=== PATIENT | female | born 1940 | race Caucasian/White ===

== ENCOUNTER → 2016-10-16 | Outpatient (CLI) | payer OTHER ==
[~2016-10-16] MED LIST: HYDR25TA5 PO; RANI75TA19 PO; TRAZ1TAB16 PO
[2016-10-16 17:53] LABS: BLOOD UREA NITROGEN 18 mg/dl (7-18); BUN/CREATININE RATIO 20.3 (10-20); CALCIUM 9.3 mg/dl (8.5-10.1); CARBON DIOXIDE 30 mmol/L (21-32); CHLORIDE 104 mmol/L (98-107); CREATININE 0.89 mg/dl (0.60-1.20); GLUCOSE 99 mg/dl (70-99); SODIUM 141 mmol/L (136-145)
== END | disposition home or self-care (01) ==
LOC: C.LABPVFM 11:49
PROVIDERS: ATTEND Nurse Practitioner
DX: R42 Dizziness and giddiness (principal)

== ENCOUNTER → 2017-01-30 | Outpatient (CLI) | payer OTHER ==
[~2017-01-30] MED LIST changes: +TRAZ-119 PO; -TRAZ1TAB16 PO
--- NOTE | 2017-01-30 11:06 | DIAGNOSTIC IMAGING REPORT ---
CHEST CT WITHOUT CONTRAST CT DOSE: 217.21 mGycm HISTORY: Pulmonary nodules R91.1 Solitary pulmonary [id number] TECHNIQUE: Multiaxial CT images of the chest were performed without contrast. COMPARISON: 07/18/2016 FINDINGS: No change in the 11 mm nodular density left lower lobe. An additional areas of micronodularity throughout both hemithoraces are stable. There are no new or interval findings. There is no significant hilar or mediastinal adenopathy within the limitations of an unenhanced scan. IMPRESSION: 1. Stable evaluation of the chest. 2. Unchanging nodularity left base and to lesser extent throughout the remaining lungs. 3. No evidence for new interval or progressive lesion Electronically signed by: Giacomo Murrell M.D. 01/30/2017 11:05 AM Dictated Date/Time: 01/30/2017 11:02 AM
== END | disposition home or self-care (01) ==
LOC: C.CTS 10:41
PROVIDERS: ATTEND Internal Medicine Pulmonary Disease
DX: R91.1 Solitary pulmonary nodule (principal)

== ENCOUNTER → 2017-03-09 | Outpatient (CLI) | payer OTHER ==
[2017-03-09 17:42] LABS: BASO % 0.7 %; BASO ABS # 0.04 K/uL (0-0.2); COMPLETE YES; EOS % 0.9 %; HEMATOCRIT 41.2 % (37-47); IG% 0.2 %; LYMPH % 21.4 %; LYMPH ABS # 1.26 K/uL (1.2-3.4); MEAN CORPUSCULAR HEMOGLOBIN 29.3 pg (25-34); MEAN CORPUSCULAR HGB CONC 32.5 g/dl (32-36); MEAN PLATELET VOLUME 10.6 fL (7.4-10.4); MONO % 3.7 %; NEUT % 73.1 %; PLATELET COUNT 264 K/uL (130-400); RED BLOOD COUNT 4.58 M/uL (4.2-5.4); WHITE BLOOD COUNT 5.88 K/uL (4.8-10.8)
[2017-03-09 17:52] LABS: ALT/SGPT 21 U/L (12-78); AST/SGOT 25 U/L (15-37); BLOOD UREA NITROGEN 15 mg/dl (7-18); BUN/CREATININE RATIO 16.3 (10-20); CALCIUM 9.5 mg/dl (8.5-10.1); CARBON DIOXIDE 29 mmol/L (21-32); CHLORIDE 103 mmol/L (98-107); CREATININE 0.93 mg/dl (0.60-1.20); GLUCOSE 121 mg/dl (70-99); POTASSIUM 3.1 mmol/L (3.5-5.1); SODIUM 141 mmol/L (136-145)
[2017-03-09 18:03] LABS: ALB/GLOB RATIO 1.1 (0.9-2); ALKALINE PHOSPHATASE 49 U/L (45-117)
[2017-03-09 20:04] LABS: LYME DISEASE AB IGM NEG (NEG)
[2017-03-09 20:05] LABS: LYME DISEASE AB IGG NEG (NEG)
--- NOTE | 2017-03-15 13:27 | CODING QUERY MEDICAL NECESSITY ---
SUPPORTING DIAGNOSIS NEEDED A supporting diagnosis is required for the test/procedure performed on this patient in order for us to be reimbursed by the patient's insurance. Please provide a supporting diagnosis for the following test/procedure listed below next to the test name along with your signature. *If there is no additional diagnosis for this patient that would support the following test/procedure please document that below next to the test/procedure. Test(s)/Procedure(s) that require a supporting diagnosis: * VITAMIN D, 25-HYDROXY DIAGNOSIS: Provider Signature: Date: Thank you Meredith Gamboa [employer] Information Management Once completed, please kindly fax back to [phone] For questions please call [phone]
== END | disposition home or self-care (01) ==
LOC: C.LABPVFM 11:12
PROVIDERS: ATTEND Nurse Practitioner
DX: I49.9 Cardiac arrhythmia, unspecified (principal); E55.9 Vitamin D deficiency, unspecified

== ENCOUNTER → 2017-04-02 | Outpatient (CLI) | payer OTHER ==
[~2017-04-02] MED LIST changes: -TRAZ-119 PO; +TRAZ1TAB16 PO
== END | disposition home or self-care (01) ==
LOC: C.LABPVFM 09:59
PROVIDERS: ATTEND Nurse Practitioner
DX: E87.6 Hypokalemia (principal)

== ENCOUNTER → 2017-04-23 | Outpatient (CLI) | payer OTHER ==
[2017-04-23 18:38] LABS: BLOOD UREA NITROGEN 21 mg/dl (7-18); BUN/CREATININE RATIO 23.4 (10-20); CALCIUM 9.5 mg/dl (8.5-10.1); CARBON DIOXIDE 34 mmol/L (21-32); CHLORIDE 102 mmol/L (98-107); CREATININE 0.91 mg/dl (0.60-1.20); GLUCOSE 119 mg/dl (70-99); POTASSIUM 3.4 mmol/L (3.5-5.1); SODIUM 140 mmol/L (136-145)
== END | disposition home or self-care (01) ==
LOC: C.LABPVFM 13:13
PROVIDERS: ATTEND Nurse Practitioner
DX: E87.6 Hypokalemia (principal)

== ENCOUNTER → 2017-04-27 | Outpatient (CLI) | payer OTHER ==
--- NOTE | 2017-04-27 15:34 | MAMMOGRAPHY REPORT ---
BILATERAL DIGITAL SCREENING MAMMOGRAM WITH CAD: 04/27/2017 CLINICAL HISTORY: Routine screening. Patient has no complaints. TECHNIQUE: Current study was also evaluated with a Computer Aided Detection (CAD) system. Bilateral CC and MLO views were obtained. COMPARISON: Comparison is made to exams dated: 04/14/2016 mammogram, 04/12/2015 mammogram, 01/31/2012 m ammogram, 01/26/2011 mammogram - [facility], 09/16/2008, and 09/20/2009 mammogram - [facility]. BREAST COMPOSITION: There are scattered areas of fibroglandular density in both breasts. FINDINGS: No suspicious masses, calcifications, or areas of architectural distortion are noted in ei ther breast. There has been no significant interval change compared to prior exams. Scattered bilater al benign-appearing calcifications are not significantly changed. Left superior breast asymmetries a re stable dating back to at least 2007 exam. IMPRESSION: ACR BI-RADS CATEGORY 2: BENIGN There is no mammographic evidence of malignancy. A 1 year screening mammogram is recommended. The pa tient will receive written notification of the results. Approximately 10% of breast cancers are not detected with mammography. A negative mammographic report should not delay biopsy if a clinically suggestive mass is present. Joanne Urena M.D. ah/:04/27/2017 14:54:04 Privacy Director: Zara JOSEPH(Kaleb)(M), [facility] letter sent: Normal 1/2 BI-RADS Code: ACR BI-RADS Category 2: Benign
== END | disposition home or self-care (01) ==
LOC: C.MAMM 13:49
PROVIDERS: ATTEND Nurse Practitioner
DX: Z12.31 Encounter for screening mammogram for malignant neoplasm of breast (principal)

== ENCOUNTER → 2017-10-01 | Day surgery (SDC) | payer OTHER ==
[2017-09-05 08:45] VITALS: BMI 23.0
[~2017-10-01] VITALS: Ht 167.6 cm; Wt 68.2 kg
[~2017-10-01] MED LIST changes: +ASPITAB71 PO; +LIDOCAINE HCL 2% 2 ML VIAL (20MG/ML) ONE; +POTASSIUM CHLORIDE PO; +PROPOFOL IV EMULSION 10 MG/ML 20 ML VIAL IV ONE; -RANI75TA19 PO; +SODIUM CHLORIDE 0.9% 500ML 500 ML IV ONE; +TRAZ-119 PO; -TRAZ1TAB16 PO
[2017-10-01 13:16] VITALS: Ht 167.6 cm; Wt 68.2 kg
--- NOTE | 2017-10-01 14:00 | Endo History and Physical ---
History & Physical Date of Service: Oct 01, 2017. Chief Complaint: hx adenoma polyp Referring Physician: Whitney ALVAREZ History of Present Illness 77 yo CF who presents for colonoscopy secondary to history of colon polyp. Past Medical History Arthritis, Gastrointestinal Disorder, Reflux Past Surgical History Hx Cardiac Surgery: No Hx Internal Defibrillator: No Hx Pacemaker: No Hx Abdominal Surgery: Yes (TUBAL) Hx of Implantable Prosthesis: No Hx Post-Op Nausea and Vomiting: No Hx Cancer Surgery: No Hx Thoracic Surgery: No Hx Orthopedic: No Hx Urinary Tract Surgery: No Family History IBD Social History Smoking Status: Never Smoker Hx Substance Use: No Hx Alcohol Use: Yes (WINE A YEAR ) Allergies Coded Allergies: No Known Allergies (Unverified , 10/01/17) Current Medications Reported Home Medications Medications Dose Route/Sig Max Daily Dose Days Date Category Dose Instructions Veronika-[place] (Aspirin Effervescent) 1 Tab Tab 1 Tab PO PRN 09/05/17 Reported [Potassium Chloride] 1 Tab PO QAM 09/05/17 Reported Desyrel (Trazodone Hcl) 50 Mg Tab 50 Mg PO HS 12/29/14 Reported Hydrochlorothiazide 25 Mg Tab 25 Mg PO Q2D 12/29/14 Reported AM Vital Signs Weight (Kilograms): 68.18 Height (Feet): 5 Height (Inches): 6 Date Time Temp Pulse Resp B/P (MAP) Pulse Ox O2 Delivery O2 Flow Rate FiO2 10/01/17 13:27 36.5 50 18 130/60 (83) 96 Room Air Physical Exam General Appearance: WD/WN, no apparent distress Respiratory/Chest: Auscultation: breath sounds normal Cardiovascular: Heart Auscultation: RRR Abdomen: Bowel Sounds: normal Inspection & Palpation: soft, non-distended, no tenderness, guarding & rebound Assessment and Plan Assessment: 77 yo CF who presents for colonoscopy secondary to history of colon polyp. Plan: Proceed with colonoscopy.
--- NOTE | 2017-10-01 14:50 | Anesthesiology Progress Note ---
Anesthesia Post Op Note Date & Time Oct 01, 2017 at 14:50 Vital Signs Pain Intensity: 0 Vital Signs Past 12 Hours Date Time Temp Pulse Resp B/P (MAP) Pulse Ox O2 Delivery O2 Flow Rate FiO2 10/01/17 14:37 53 12 105/48 (67) 99 Room Air 10/01/17 13:27 36.5 50 18 130/60 (83) 96 Room Air Notes Mental Status: alert / awake / arousable, participated in evaluation Pt Amnestic to Procedure: Yes Nausea / Vomiting: adequately controlled Pain: adequately controlled Airway Patency, RR, SpO2: stable & adequate BP & HR: stable & adequate Hydration State: stable & adequate Anesthetic Complications: no major complications apparent
--- NOTE | 2017-10-01 14:58 | Discharge Instructions ---
Endoscopy Patient Instructions Date / Procedure(s) Performed Oct 01, 2017. Colonoscopy Allergy Information Coded Allergies: No Known Allergies (Unverified , 10/01/17) Discharge Date / Findings Oct 01, 2017. Colon polyps Diverticulosis Internal hemorrhoids Medication Instructions OK to resume all medications today as prescribed Reported Home Medications Medications Dose Route/Sig Max Daily Dose Days Date Category Dose Instructions Veronika-[place] (Aspirin Effervescent) 1 Tab Tab 1 Tab PO PRN 09/05/17 Reported [Potassium Chloride] 1 Tab PO QAM 09/05/17 Reported Desyrel (Trazodone Hcl) 50 Mg Tab 50 Mg PO HS 12/29/14 Reported Hydrochlorothiazide 25 Mg Tab 25 Mg PO Q2D 12/29/14 Reported AM Provider Instructions Activity Restrictions - No exercising or heavy lifting for 24 hours. - Do not drink alcohol the day of the procedure. - Do not drive a car or operate machinery until the day after the procedure. - Do not make any important decisions or sign important papers in 24 hours after the procedure. Following Day: - Return to full activity which may include returning to work/school. Diet Start your diet with liquids and light foods (jello, soup, juice, toast). Then eat your usual diet if not nauseated. Treatment For Common After Affects For mild abdominal pain, bloating, or excessive gas: - Rest - Eat lightly - Lie on right side Follow-Up Information Follow-up with Whitney ALVAREZ as scheduled Anesthesia Information What You Should Know You have had a procedure that required some medicine to reduce anxiety and discomfort. This treatment is called moderate sedation. After receiving the treatment, you may be sleepy, but you will be able to breathe on your own. The effects of the treatment may last for several hours. Follow these instructions along with Activity/Diet recommendations noted above: * Do NOT do anything where dizziness or clumsiness would be dangerous. * Rest quietly at home today, then you can be up and about tomorrow. * Have a responsible person stay with you the rest of today. * You may have had an I.V. today. If so, you may take the dressing off later today. Recommendations Call your doctor if: * Trouble breathing * Continuous vomiting for more than 24 hours * Temperature above 101 degrees * Severe abdominal pain or bloating * Pain not relieved by pain medicine ordered * There is increased drainage or redness from any incision * A large amount of rectal bleeding greater than 2-3 tablespoons. (If you had a polyp/s removed or have hemorrhoids, a small amount of blood - from the rectum is to be expected.) * You have any unanswered questions or concerns. IN THE EVENT OF A SERIOUS EMERGENCY, GO TO THE NEAREST EMERGENCY ROOM Your discharge instructions were prepared by provider Mikal Cantu. Patient Instructions Signature Page Ely Muniz Patient (or Guardian) Signature/Date: I have read and understand the instructions given to me by my caregivers. Caregiver/RN/Doctor Signature/Date: The above-named patient and/or guardian has received patient instructions on this date. + Original Patient Signature Page (only) stays with chart. Please make copy for patient.
--- NOTE | 2017-10-01 15:05 | GI REPORT ---
Procedure Date: 10/01/2017 1:43 PM Procedure: Colonoscopy Indications: High risk colon cancer surveillance: Personal history of colonic polyps Medicines: Monitored Anesthesia Care Complications: No immediate complications. Estimated Blood Loss: Estimated blood loss: none. Procedure: Pre-Anesthesia Assessment: - Prior to the procedure, a History and Physical was performed, and patient medications and allergies were reviewed. The patient's tolerance of previous anesthesia was also reviewed. The risks and benefits of the procedure and the sedation options and risks were discussed with the patient. All questions were answered, and informed consent was obtained. Prior Anticoagulants: The patient has taken no previous anticoagulant or antiplatelet agents. ASA Grade Assessment: II - A patient with mild systemic disease. After reviewing the risks and benefits, the patient was deemed in satisfactory condition to undergo the procedure. After I obtained informed consent, the scope was passed under direct vision. Throughout the procedure, the patient's blood pressure, pulse, and oxygen saturations were monitored continuously. The scope was introduced through the anus and advanced to the terminal ileum. The colonoscopy was performed without difficulty. The patient tolerated the procedure well. The quality of the bowel preparation was good. The terminal ileum, ileocecal valve, appendiceal orifice, and rectum were photographed. Findings: Two sessile polyps were found in the ascending colon. The polyps were 3 to 5 mm in size. These polyps were removed with a cold snare. Resection and retrieval were complete. Two sessile polyps were found in the transverse colon and ascending colon. The polyps were 5 to 7 mm in size. These polyps were removed with a hot snare. Resection and retrieval were complete. Multiple small-mouthed diverticula were found in the sigmoid colon. Non-bleeding internal hemorrhoids were found during retroflexion. The hemorrhoids were small. Impression: - Two 3 to 5 mm polyps in the ascending colon, removed with a cold snare. Resected and retrieved. - Two 5 to 7 mm polyps in the transverse colon and in the ascending colon, removed with a hot snare. Resected and retrieved. - Diverticulosis in the sigmoid colon. - Non-bleeding internal hemorrhoids. Recommendation: - Resume previous diet. - Continue present medications. - Repeat colonoscopy for surveillance based on pathology results. - Return to primary care physician as previously scheduled. Mikal Cantu DO 10/01/2017 3:05:13 PM This report has been signed electronically. Note Initiated On: 10/01/2017 1:43 PM I attest to the content of the Intraoperative Record and orders documented therein, exceptions below
[2017-10-01 15:07] VITALS: BP 127/61; PULSE 51; O2SAT 99
== END | disposition home or self-care (01) ==
LOC: C.GI 12:57
PROVIDERS: ATTEND Internal Medicine
DX: Z12.11 Encounter for screening for malignant neoplasm of colon (principal); Z86.010 Personal history of colon polyps; D12.2 Benign neoplasm of ascending colon; D12.3 Benign neoplasm of transverse colon; K57.30 Diverticulosis of large intestine without perforation or abscess without bleeding; K64.8 Other hemorrhoids; Z83.79 Family history of other diseases of the digestive system; K21.9 Gastro-esophageal reflux disease without esophagitis; M19.90 Unspecified osteoarthritis, unspecified site; Z79.899 Other long term (current) drug therapy

== ENCOUNTER → 2018-02-05 | Outpatient (CLI) | payer OTHER ==
[~2018-02-05] MED LIST changes: -LIDOCAINE HCL 2% 2 ML VIAL (20MG/ML) ONE; -PROPOFOL IV EMULSION 10 MG/ML 20 ML VIAL IV ONE; -SODIUM CHLORIDE 0.9% 500ML 500 ML IV ONE
--- NOTE | 2018-02-05 11:31 | DIAGNOSTIC IMAGING REPORT ---
(CHEST) THORAX WITHOUT CT DOSE: 200.76 mGycm HISTORY: Pulmonary nodules. Follow-up. TECHNIQUE: Multiaxial CT images of the chest were performed without contrast. A dose lowering technique was utilized adhering to the principles of ALARA. COMPARISON: Chest CT 01/30/2017 and 12/21/2015. FINDINGS: The central airways are patent. No pleural effusions. No pneumothorax. The left lower lobe nodule is not significantly changed and size or appearance measuring 11 mm. Linear density at the base of the left lower lobe favor subsegmental atelectasis or scarring. This remains unchanged. Calcified mediastinal and left hilar lymph nodes with a punctate calcified granuloma within the left lower lobe. Stable 3 mm nodular density within the right lower lobe on image 190. And stable 4 mm nodule within the right lower lobe on image 164. No new pulmonary nodules identified. Punctate calcified granuloma within the right middle lobe. No suspicious lytic or blastic osseous lesions. No mediastinal or hilar lymphadenopathy. The heart is mildly enlarged. Trace pericardial effusion which has improved. Stable 1 cm hypodense lesion within the left hepatic lobe. This favors a cyst. Normal adrenal glands. Normal caliber thoracic aorta. IMPRESSION: 1. Stable pulmonary nodules with the largest in the left lower lobe measuring 11 mm. Again, a carcinoid tumor is the diagnosis of exclusion. 2. No new pulmonary nodules identified. 3. Trace pericardial effusion which has improved. 4. Stable mild cardiomegaly. Electronically signed by: Juan Hurtaod M.D. 02/05/2018 11:30 AM Dictated Date/Time: 02/05/2018 11:17 AM
== END | disposition home or self-care (01) ==
LOC: C.CTS 10:40
PROVIDERS: ATTEND Internal Medicine Pulmonary Disease
DX: R91.1 Solitary pulmonary nodule (principal)

== ENCOUNTER → 2018-04-18 | Outpatient (CLI) | payer OTHER ==
[~2018-04-18] MED LIST changes: -TRAZ-119 PO; +TRAZ1TAB96 PO
[2018-04-18 12:54] LABS: BLOOD UREA NITROGEN 16 mg/dl (7-18); CALCIUM 9.6 mg/dl (8.5-10.1); CARBON DIOXIDE 31 mmol/L (21-32); CREATININE 0.84 mg/dl (0.60-1.20); GLUCOSE 98 mg/dl (70-99); POTASSIUM 3.6 mmol/L (3.5-5.1); SODIUM 137 mmol/L (136-145)
== END | disposition home or self-care (01) ==
LOC: C.LABPVFM 11:17
PROVIDERS: ATTEND Nurse Practitioner
DX: R60.9 Edema, unspecified (principal); E87.6 Hypokalemia

== ENCOUNTER → 2018-05-03 | Outpatient (CLI) | payer OTHER ==
--- NOTE | 2018-05-03 15:42 | MAMMOGRAPHY REPORT ---
BILATERAL DIGITAL SCREENING MAMMOGRAM TOMOSYNTHESIS WITH CAD: 05/03/2018 CLINICAL HISTORY: Routine screening. Patient has no complaints. TECHNIQUE: The study was acquired using full field digital technology and interpreted from soft copy. Breast tomosynthesis in addition to standard 2D mammography was performed. Current study was also ev aluated with a Computer Aided Detection (CAD) system. Note that there is mild motion artifact in the left lateral breast on the cc 2D image, however, the corresponding tomosynthesis images have no milan on and are adequate for interpretation. COMPARISON: Comparison is made to exams dated: 04/27/2017 mammogram, 04/14/2016 mammogram, 04/12/2015 m ammogram, 08/13/2012 mammogram, 02/14/2012 mammogram, and 01/31/2012 mammogram - [facility]. BREAST COMPOSITION: There are scattered areas of fibroglandular density in both breasts. FINDINGS: No suspicious masses, calcifications, or areas of architectural distortion are noted in either breast . There has been no significant interval change compared to prior exams. Scattered bilateral benign-a ppearing calcifications are not significantly changed. IMPRESSION: ACR BI-RADS CATEGORY 2: BENIGN There is no mammographic evidence of malignancy. A 1 year screening mammogram is recommended.( 019) The patient will receive written notification of the results. Some breast cancers are not detected with mammography. A negative mammographic report should not jason y biopsy if a clinically suggestive mass is present. Joanne Urena M.D. /:05/03/2018 15:24:28 Architecture Consultant: Rosa Maria Sheppard RT(R)(M), [facility] letter sent: Normal 1/2 BI-RADS Code: ACR BI-RADS Category 2: Benign
== END | disposition home or self-care (01) ==
LOC: C.MAMM 14:48
PROVIDERS: ATTEND Nurse Practitioner
DX: Z12.31 Encounter for screening mammogram for malignant neoplasm of breast (principal)

== ENCOUNTER 2022-01-17 12:25 | Inpatient (IN) ==
[2022-01-17] MEDS ORDERED: ASPIRIN CHEW 324 MG PO STA (12:53)
--- NOTE | 2022-01-17 13:12 | XRay Report ---
XR chest 1V portable HISTORY: 81 years-old Female Chest Pain . Atypical chest pain with weakness COMPARISON: Chest radiographs 04/16/2019, chest CT 02/05/2018, 02/16/2015, PET CT 02/22/2015. TECHNIQUE: Portable AP view of the chest FINDINGS: The cardiac silhouette is mildly enlarged. Atherosclerosis of the thoracic aorta. No pneumothorax, pl eural effusion or overt pulmonary edema. No airspace consolidation typical for pneumonia. Unchanged 1 .2 cm circumscribed nodule of the left lower lobe. Degenerative changes of the shoulders and spine. IMPRESSION: 1. Cardiomegaly without acute process. 2. 1.2 cm left lower lobe nodule has only minimally increased in size from 2015. On prior imaging, th is was suggestive of a pulmonary hamartoma versus pulmonary carcinoid. ACT 112: Negative or not required by law. The above report was generated using voice recognition software. It may contain grammatical, syntax o r spelling errors. Electronically signed by: Sean Joaquin M.D. 01/17/2022 1:11 PM
[2022-01-17 13:15] LABS: Basophils # (auto) 0.04 K/uL (0-0.2); Basophils % (auto) 0.6 %; Eosinophils # (auto) 0.15 K/uL (0-0.5); Eosinophils % (auto) 2.1 %; Hematocrit (blood only) 43.9 % (37-47); Hemoglobin 14.6 g/dL (12.0-16.0); Immature Granulocytes # (auto) 0.01 K/uL (0.00-0.02); Immature Granulocytes % (auto) 0.1 %; Lymphocytes # (auto) 1.63 K/uL (1.2-3.4); Lymphocytes % (auto) 23.3 %; Mean Corpuscular Hemoglobin 30.4 pg (25-34); Mean Corpuscular Hgb Conc 33.3 g/dL (32-36); Mean Corpuscular Volume 91.3 fL (80-100); Mean Platelet Volume 10.1 fL (7.4-10.4); Monocytes # (auto) 0.38 K/uL (0.11-0.59); Monocytes % (auto) 5.4 %; Neutrophils # (auto) 4.78 K/uL (1.4-6.5); Neutrophils % (auto) 68.5 %; Platelet Count 285 K/uL (130-400); RDW Coefficient of Variation 13.4 % (11.5-14.5); Red Blood Count 4.81 M/uL (4.2-5.4); White Blood Count 6.99 K/uL (4.8-10.8)
--- NOTE | 2022-01-17 13:19 | Emergency Department Note ---
History of Present Illness General Chief complaint: Dizziness Time Seen by Provider: 01/17/22 12:46 History of Present Illness Provider complaint: Dizziness near syncope palpitations Onset (ago): hour(s) 2 Location: chest Radiation: non-radiation Severity: mild Pain Consistency: + now resolved Current Pain Intensity: 0 Relieved By: + none Exacerbated By: + none Associated symptoms: + chest pain and + shortness of breath; no cough, no fever/chills, no headaches or no nausea/vomiting 81-year-old female presents emergency department for dizziness near syncope and palpitations. Patient reports that this morning she was outside painting when she suddenly began to feel very dizzy, warm, folic she was in a pass out and like her heart was racing. She reported some difficulty breathing but no chest pain. She went to her PCP who referred her into the emergency department today. Home Medications Medication Instructions Recorded Confirmed Type ibuprofen-diphenhydramine citrate 1 cap PO HS 10/16/18 01/17/22 History 200 mg-38 mg tablet (Advil PM) potassium gluconate 595 mg (99 mg) 595 mg PO BID tab 08/27/20 01/17/22 History tablet hydrochlorothiazide 25 mg tablet See Rx Instructions .ROUTE 08/29/21 01/17/22 Rx .COMPLEX #30 tablet esomeprazole magnesium 40 mg 40 mg PO DAILY #30 cap 09/21/21 01/17/22 Rx capsule,delayed release valacyclovir 1 gram tablet 1,000 mg PO BID #14 tab 12/20/21 01/17/22 Rx (Valtrex) trazodone 50 mg tablet See Rx Instructions .ROUTE 01/12/22 01/17/22 Rx .COMPLEX #30 tablet Allergies Allergy/AdvReac Type Severity Reaction Status Date / Time No Known Allergies Allergy Verified 01/17/22 14:45 Past Med/Surg History Medical History Anemia Generalized edema GERD (gastroesophageal reflux disease) GERD (gastroesophageal reflux disease) Insomnia Peripheral edema Pulmonary nodule Situational anxiety Surgical History History of bilateral cataract extraction History of bilateral tubal ligation History of colonoscopy History of dilatation and curettage History of esophagogastroduodenoscopy (EGD) History of tooth extraction History of varicose vein ligation bilt legs Hx of left breast biopsy benign Family History Mother Diabetes Sister Breast cancer Other No family history of adverse response to anesthesia Denies family history of Ovarian cancer Prostate cancer Myocardial infarction Colorectal cancer Social History Smoking Status: Never smoker Second Hand Exposure: No; Hx Alcohol Use: Yes Alcohol type: wine Hx Substance Use: No Preferred Language: Zimbabwean Communication Ability: Effective Visual Impairment: No Limitations Hearing Ability: Normal Dental Director Required: No Beliefs That Will Affect Care: None marital status: Current Living Situation: Spouse current occupational status: retired Feels Safe at Home: Yes Dental Care, Regularly: Yes Seatbelt Use: always Sunscreen Use: Yes (Sometimes) Assistive Devices: Glasses Review of Systems A total of 10 systems reviewed and were otherwise negative Physical Exam Vital Signs Vital Signs - 24 hr 01/17/22 12:30 01/17/22 12:34 01/17/22 12:53 Temperature 36.7 C Temperature Source Oral Pulse Rate 189 H Pulse Rate [Left Finger] Pulse Rate from SpO2 Sensor Pulse Rhythm Regular Pulse Rhythm [Left Finger] Respiratory Rate 22 Respiratory Effort / Characteristics Non-Labored Spontaneous Respiratory Depth Normal Respiratory Pattern Regular Blood Pressure 107/79 Blood Pressure Mean 88 Blood Pressure Position Lying Pulse Oximetry 96 Oxygen Delivery Method Room Air Room Air Room Air Oxygen Flow Rate 98 Sepsis Recent Fever Within 48 Hours No Sepsis New/Unexplained Change in Mental Status N/A Sepsis Action Taken by Nursing No Action Required 01/17/22 13:01 01/17/22 13:10 01/17/22 13:20 Temperature Temperature Source Pulse Rate 64 67 85 Pulse Rate [Left Finger] Pulse Rate from SpO2 Sensor 66 67 Pulse Rhythm Pulse Rhythm [Left Finger] Respiratory Rate 12 20 Respiratory Effort / Characteristics Respiratory Depth Respiratory Pattern Blood Pressure 134/63 Blood Pressure Mean 86 Blood Pressure Position Pulse Oximetry 99 100 Oxygen Delivery Method Oxygen Flow Rate Sepsis Recent Fever Within 48 Hours Sepsis New/Unexplained Change in Mental Status Sepsis Action Taken by Nursing 01/17/22 13:30 01/17/22 13:37 01/17/22 13:40 Temperature Temperature Source Pulse Rate 62 62 Pulse Rate [Left Finger] 62 Pulse Rate from SpO2 Sensor 61 62 Pulse Rhythm Pulse Rhythm [Left Finger] Regular Respiratory Rate 15 20 14 Respiratory Effort / Characteristics Non-Labored Respiratory Depth Normal Respiratory Pattern Blood Pressure 131/76 Blood Pressure Mean 94 Blood Pressure Position Pulse Oximetry 98 98 99 Oxygen Delivery Method Room Air Oxygen Flow Rate Sepsis Recent Fever Within 48 Hours Sepsis New/Unexplained Change in Mental Status Sepsis Action Taken by Nursing 01/17/22 13:50 01/17/22 14:00 01/17/22 14:10 Temperature Temperature Source Pulse Rate 60 58 L 68 Pulse Rate [Left Finger] Pulse Rate from SpO2 Sensor 60 58 L 67 Pulse Rhythm Pulse Rhythm [Left Finger] Respiratory Rate 16 21 17 Respiratory Effort / Characteristics Respiratory Depth Respiratory Pattern Blood Pressure 139/56 L Blood Pressure Mean 83 Blood Pressure Position Pulse Oximetry 99 98 97 Oxygen Delivery Method Oxygen Flow Rate Sepsis Recent Fever Within 48 Hours Sepsis New/Unexplained Change in Mental Status Sepsis Action Taken by Nursing 01/17/22 14:55 01/17/22 15:00 01/17/22 15:10 Temperature Temperature Source Oral Pulse Rate 55 L Pulse Rate [Left Finger] Pulse Rate from SpO2 Sensor Pulse Rhythm Pulse Rhythm [Left Finger] Respiratory Rate 15 Respiratory Effort / Characteristics Non-Labored Respiratory Depth Normal Respiratory Pattern Blood Pressure 137/46 L Blood Pressure Mean 76 Blood Pressure Position Pulse Oximetry 100 96 100 Oxygen Delivery Method Oxygen Flow Rate Sepsis Recent Fever Within 48 Hours Sepsis New/Unexplained Change in Mental Status Sepsis Action Taken by Nursing 01/17/22 15:20 01/17/22 15:30 01/17/22 15:31 Temperature Temperature Source Pulse Rate 54 L 61 61 Pulse Rate [Left Finger] Pulse Rate from SpO2 Sensor 62 Pulse Rhythm Pulse Rhythm [Left Finger] Respiratory Rate 13 24 17 Respiratory Effort / Characteristics Respiratory Depth Respiratory Pattern Blood Pressure 149/54 H Blood Pressure Mean 85 Blood Pressure Position Pulse Oximetry 97 98 99 Oxygen Delivery Method Oxygen Flow Rate Sepsis Recent Fever Within 48 Hours Sepsis New/Unexplained Change in Mental Status Sepsis Action Taken by Nursing 01/17/22 15:40 01/17/22 15:50 01/17/22 16:00 Temperature Temperature Source Pulse Rate 63 55 L 59 L Pulse Rate [Left Finger] Pulse Rate from SpO2 Sensor 59 L 55 L Pulse Rhythm Pulse Rhythm [Left Finger] Respiratory Rate 14 11 L 18 Respiratory Effort / Characteristics Respiratory Depth Respiratory Pattern Blood Pressure Blood Pressure Mean Blood Pressure Position Pulse Oximetry 99 98 96 Oxygen Delivery Method Oxygen Flow Rate Sepsis Recent Fever Within 48 Hours Sepsis New/Unexplained Change in Mental Status Sepsis Action Taken by Nursing 01/17/22 16:01 01/17/22 16:20 01/17/22 16:30 Temperature Temperature Source Pulse Rate 57 L 60 56 L Pulse Rate [Left Finger] Pulse Rate from SpO2 Sensor Pulse Rhythm Pulse Rhythm [Left Finger] Respiratory Rate 14 17 17 Respiratory Effort / Characteristics Respiratory Depth Respiratory Pattern Blood Pressure 149/53 H Blood Pressure Mean 85 Blood Pressure Position Pulse Oximetry 98 Oxygen Delivery Method Oxygen Flow Rate Sepsis Recent Fever Within 48 Hours Sepsis New/Unexplained Change in Mental Status Sepsis Action Taken by Nursing 01/17/22 16:40 01/17/22 16:50 01/17/22 17:00 Temperature Temperature Source Oral Pulse Rate 56 L 69 Pulse Rate [Left Finger] Pulse Rate from SpO2 Sensor Pulse Rhythm Pulse Rhythm [Left Finger] Respiratory Rate 19 13 Respiratory Effort / Characteristics Non-Labored Respiratory Depth Normal Respiratory Pattern Blood Pressure Blood Pressure Mean Blood Pressure Position Pulse Oximetry Oxygen Delivery Method Oxygen Flow Rate Sepsis Recent Fever Within 48 Hours Sepsis New/Unexplained Change in Mental Status Sepsis Action Taken by Nursing Physical Exam GENERAL: She is oriented to person, place, and time. She appears well-developed and well-nourished. She does not appear distressed. HENT: Exam performed. -Head: Normocephalic and atraumatic. -Right Ear: External ear normal. No mastoid tenderness. -Left Ear: External ear normal. No mastoid tenderness. -Mouth/Throat: The oropharynx is clear and moist. No trismus in the jaw. No dental abscesses or uvula swelling. No oropharyngeal exudate or tonsillar abscesses. EYES: Conjunctivae and EOM are normal. Pupils are equal, round, and reactive to light. Right eye exhibits no discharge. Left eye exhibits no discharge. No scleral icterus. NECK: Normal range of motion. Neck supple. No JVD present. No spinous process tenderness present. No carotid bruit present. No rigidity. No tracheal deviation and normal range of motion present. No Brudzinski's sign and no Kernig's sign noted. CV: Normal rate, irregular rhythm, normal heart sounds and intact distal pulses. There is no peripheral edema. Palpable radial pulses bue. PULM/CHEST: Effort normal and breath sounds normal. No respiratory distress. No stridor. She has no wheezes. She has no rales. -Chest Wall: She exhibits no tenderness. ABD: The abdomen is soft. Bowel sounds are normal. She has no distension. No mass is present. There is no tenderness. There is no rebound, no guarding, no Schroeder's sign and no tenderness at McBurney's point. Rovsig negative MUSC/SKEL: Normal range of motion. There is no peripheral edema, tenderness or deformity. LYMPH: No cervical adenopathy. NEURO: She is alert and oriented to person, place, and time. She has normal strength. No cranial nerve deficit or sensory deficit. Coordination and gait normal. GCS eye subscore is 4. GCS verbal subscore is 5. GCS motor subscore is 6. Cerebellar tests wnl. SKIN: Skin is warm and dry. She is not diaphoretic. PSYCH: She has a normal mood and affect. Behavior is normal. Judgment and thought content normal. Course Course 1246: The patient was evaluated in room B10. A complete history and physical exam was performed Cardiac monitoring: An order was placed for continuous cardiac monitoring. The monitor shows a rate of 80 with atrial fibrilation rhythm Nursing staff reports that when the patient arrived her heart rate was in the 180s with an irregular rhythm and has since improved without intervention. EMR reviewed. Patient was seen in her PCPs office in the clinic today Dr. Estrella who referred her here to the emergency department because of an abnormal EKG most likely atrial fibrillation with a rapid ventricular rate in the 150s. 1300: Vital signs stable. Patient converted to sinus rhythm without pharma cological intervention. 1515: Vital signs stable. Labs within normal limits with exception of a low magnesium. Magnesium replacement started in the emergency department. Imaging shows no PE. [facility] given the new onset of paroxysmal atrial fibrillation. [place] Hospitalist Dr. Ruvalcaba notified. Administered Medications Discontinued Medications Aspirin (Aspirin Chew 324 Mg) 324 mg PO NOW STA Stop: 01/17/22 12:54 Last Admin: 01/17/22 13:41 Dose: Not Given Documented by: [id number] Magnesium Sulfate/Dextrose (Magnesium Sulfate / D5w) 1 gm in 100 mls @ 100 mls/hr IV Q1H [facility] Stop: 01/17/22 16:44 Last Admin: 01/17/22 16:15 Dose: 100 mls/hr Documented by: [id number] Infusion: 01/17/22 16:15 Dose: 100 mls/hr Documented by: [id number] Admin: 01/17/22 15:21 Dose: 100 mls/hr Documented by: [id number] Ioversol (Optiray 320 125ml) 120 ml IV ONCE ONE Stop: 01/17/22 14:56 Last Admin: 01/17/22 14:45 Dose: 120 ml Documented by: [id number] Medical Decision Making Laboratory Data Result diagrams: 01/17/22 12:46 01/17/22 12:46 Lab Results 01/17/22 01/17/22 01/17/22 Range/Units 12:46 12:46 12:46 WBC 6.99 (4.8-10.8) K/uL RBC 4.81 (4.2-5.4) M/uL Hgb 14.6 (12.0-16.0) g/dL Hct 43.9 (37-47) % MCV 91.3 (80-100) fL MCH 30.4 (25-34) pg MCHC 33.3 (32-36) g/dL RDW Std Deviation 45.0 (36.4-46.3) fL RDW Coeff of Iain 13.4 (11.5-14.5) % Plt Count 285 (130-400) K/uL MPV 10.1 (7.4-10.4) fL Immature Gran % (Auto) 0.1 % Neut % (Auto) 68.5 % Lymph % (Auto) 23.3 % Walton % (Auto) 5.4 % Eos % (Auto) 2.1 % Baso % (Auto) 0.6 % Neut # (Auto) 4.78 (1.4-6.5) K/uL Lymph # (Auto) 1.63 (1.2-3.4) K/uL Walton # (Auto) 0.38 (0.11-0.59) K/uL Eos # (Auto) 0.15 (0-0.5) K/uL Baso # (Auto) 0.04 (0-0.2) K/uL Immature Gran # (Auto) 0.01 (0.00-0.02) K/uL PT 11.1 (9.0-12.0) Seconds INR 1.0 (0.9-1.1) APTT 27.3 (21.0-31.0) Seconds PTT Ratio 1.0 VBG pH (7.36-7.41) VBG pCO2 (38-50) mmHg VBG pO2 mmHg VBG HCO3 mmol/L VBG O2 Saturation % VBG Base Excess mEq/L Barometric Pressure mm/Hg Sodium 139 (136-145) mmol/L Potassium 3.7 (3.5-5.1) mmol/L Chloride 104 (98-107) mmol/L Carbon Dioxide 24 (21-32) mmol/L Anion Gap 11 (3-11) BUN 20 (6-23) mg/dl Creatinine 0.80 (0.6-1.2) mg/dl Est Cr Clr Drug Dosing 57.9 ml/min Est GFR ( Amer) 80.7 ml/min Est GFR (Non-Af Amer) 69.6 ml/min BUN/Creatinine Ratio 25.0 H (10-20) Glucose 118 H (70-99(Fasting)) mg/dl Calcium 9.5 (8.5-10.1) mg/dl Magnesium 1.5 L (1.7-2.4) mg/dl Troponin I High Sens 8.7 (0-14) pg/ml Lipase 26 (11-82) U/L SARS-CoV-2, RNA, NAAT (NEGATIVE) 01/17/22 01/17/22 01/17/22 Range/Units 13:11 15:03 Unknown WBC (4.8-10.8) K/uL RBC (4.2-5.4) M/uL Hgb (12.0-16.0) g/dL Hct (37-47) % MCV (80-100) fL MCH (25-34) pg MCHC (32-36) g/dL RDW Std Deviation (36.4-46.3) fL RDW Coeff of Iain (11.5-14.5) % Plt Count (130-400) K/uL MPV (7.4-10.4) fL Immature Gran % (Auto) % Neut % (Auto) % Lymph % (Auto) % Walton % (Auto) % Eos % (Auto) % Baso % (Auto) % Neut # (Auto) (1.4-6.5) K/uL Lymph # (Auto) (1.2-3.4) K/uL Walton # (Auto) (0.11-0.59) K/uL Eos # (Auto) (0-0.5) K/uL Baso # (Auto) (0-0.2) K/uL Immature Gran # (Auto) (0.00-0.02) K/uL PT (9.0-12.0) Seconds INR (0.9-1.1) APTT (21.0-31.0) Seconds PTT Ratio VBG pH 7.50 H (7.36-7.41) VBG pCO2 32 L (38-50) mmHg VBG pO2 32 mmHg VBG HCO3 25 mmol/L VBG O2 Saturation 64.9 % VBG Base Excess 2.2 mEq/L Barometric Pressure 732.7 mm/Hg Sodium (136-145) mmol/L Potassium (3.5-5.1) mmol/L Chloride (98-107) mmol/L Carbon Dioxide (21-32) mmol/L Anion Gap (3-11) BUN (6-23) mg/dl Creatinine (0.6-1.2) mg/dl Est Cr Clr Drug Dosing ml/min Est GFR ( Amer) ml/min Est GFR (Non-Af Amer) ml/min BUN/Creatinine Ratio (10-20) Glucose (70-99(Fasting)) mg/dl Calcium (8.5-10.1) mg/dl Magnesium (1.7-2.4) mg/dl Troponin I High Sens 18.0 H D (0-14) pg/ml Lipase (11-82) U/L SARS-CoV-2, RNA, NAAT NEGATIVE (NEGATIVE) Imaging Data Radiologist's Impression: Chest X-Ray 01/17/22 12:53 XR chest 1V portable HISTORY: 81 years-old Female Chest Pain . Atypical chest pain with weakness COMPARISON: Chest radiographs 04/16/2019, chest CT 02/05/2018, 02/16/2015, PET CT 02/22/2015. TECHNIQUE: Portable AP view of the chest FINDINGS: The cardiac silhouette is mildly enlarged. Atherosclerosis of the thoracic aorta. No pneumothorax, pleural effusion or overt pulmonary edema. No airspace consolidation typical for pneumonia. Unchanged 1.2 cm circumscribed nodule of the left lower lobe. Degenerative changes of the shoulders and spine. IMPRESSION: 1. Cardiomegaly without acute process. 2. 1.2 cm left lower lobe nodule has only minimally increased in size from 2015. 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 ACT 112: Negative or not required by law. The above report was generated using voice recognition software. It may contain grammatical, syntax or spelling errors. Electronically signed by: Sean Joaquin M.D. 01/17/2022 1:11 PM Chest CTA 01/17/22 12:54 CHEST CTA for PULMONARY ARTERIES CT DOSE: 316.34 mGy.cm HISTORY: Atypical chest pain. Dizziness. Weakness. TECHNIQUE: Multiaxial CT images of the chest were performed following the intravenous administration of contrast to evaluate the pulmonary arteries. Maximal intensity projection images were also obtained. A dose lowering technique was utilized adhering to the principles of ALARA. COMPARISON STUDY: Chest CT 02/05/2018. FINDINGS: Limited views the upper abdomen demonstrate normal liver, spleen, and adrenal glands. Stable 1 cm right thyroid nodule. This does not meet CT criteria for follow-up. A few calcified mediastinal lymph nodes. No mediastinal or hilar lymphadenopathy. The heart remains mildly enlarged. Trace pericardial effusion, unchanged. No pleural effusions. Normal esophagus. No suspicious lytic or blastic osseous lesions. No acute fractures identified within the chest. Normal caliber thoracic aorta with no evidence for dissection. The main pulmonary artery is slightly distended measuring up to 3.1 cm in diameter. This suggests mild pulmonary arterial hypertension. This is also similar to the prior study. There are few calcified left hilar lymph nodes. No filling defects seen within the pulmonary arteries to suggest a pulmonary embolus. There are few scattered punctate calcified granulomas within the lungs. No pneumothorax. The central airways are patent. Left basilar linear densities consistent with subsegmental atelectasis or scarring. The 12 mm left lower lobe pulmonary nodule on image 113. This previously measured 11 mm. No new focal lung consolidations to suggest pneumonia. No evidence for pulmonary edema. IMPRESSION: 1. No evidence for pulmonary embolus. 2. Stable mild cardiomegaly and a trace pericardial effusion. 3. There is a 12 mm left lower lobe pulmonary nodule. This previously measured 11 mm. 4. No focal lung consolidations to suggest pneumonia. ACT 112: Negative or not required by law. Electronically signed by: Juan Hurtado M.D. 01/17/2022 3:10 PM ECG Data Additional Comments: EKG #1 at 1233: Atrial fibrillation with rate of 129. QRS [address] elevation or ST depression PVCs present. EKG #2 at 1255: Sinus rhythm with rate of 64. LA QRS and QT intervals within normal limits. No ST elevation or ST depression. [facility] Narrative 1246: The patient was evaluated in room B10. A complete history and physical exam was performed Cardiac monitoring: An order was placed for continuous cardiac monitoring. The monitor shows a rate of 80 with atrial fibrilation rhythm Nursing staff reports that when the patient arrived her heart rate was in the 180s with an irregular rhythm and has since improved without intervention. EMR reviewed. Patient was seen in her PCPs office in the clinic today Dr. Estrella who referred her here to the emergency department because of an abnormal EKG most likely atrial fibrillation with a rapid ventricular rate in the 150s. 1300: Vital signs stable. Patient converted to sinus rhythm without pharmacological intervention. 1515: Vital signs stable. Labs within normal limits with exception of a low magnesium. Magnesium replacement started in the emergency department. Imaging shows no PE. [facility] given the new onset of paroxysmal atrial fibrillation. [facility] Dr. Ruvalcaba notified. Impression & Plan Paroxysmal A-fib, Near syncope Discharge Plan Visit Data Chief Complaint: Dizziness ED Provider: Alfa Shine Discharge Problem: Paroxysmal A-fib, Near syncope Patient Disposition: Admitted As Inpatient Forms Stand Alone Forms: My [facility] Prescriptions Prescriptions: No Action potassium gluconate 595 mg (99 mg) tablet 595 mg PO BID RF: 0 hydrochlorothiazide 25 mg tablet See Rx Instructions .ROUTE .COMPLEX Qty: 30 RF: 11 trazodone 50 mg tablet See Rx Instructions .ROUTE .COMPLEX Qty: 30 RF: 11 esomeprazole magnesium 40 mg capsule,delayed release(DR/EC) 40 mg PO DAILY Qty: 30 RF: 2 valacyclovir [Valtrex] 1 gram tablet 1,000 mg PO BID Qty: 14 RF: 2 Advil PM 200-38 mg Tablet 1 cap PO HS RF: 0 Referrals Referrals: Gracie Sheffield CRNP [Primary Care Provider] -
[2022-01-17 13:30] LABS: Partial Thromboplastin Time 27.3 Seconds (21.0-31.0); Prothrombin Time 11.1 Seconds (9.0-12.0)
[2022-01-17 13:37] LABS: Calcium 9.5 mg/dl (8.5-10.1); Creatinine Clr Calc Pharmacy 57.9 ml/min; Est GFR (African American) 80.7 ml/min; Est GFR (Non-African American) 69.6 ml/min; Magnesium 1.5 mg/dl (1.7-2.4); Potassium 3.7 mmol/L (3.5-5.1)
[2022-01-17 13:53] LABS: Base Excess VBG 2.2 mEq/L; Oxygen Saturation VBG 64.9 %; pH VBG 7.5 (7.36-7.41)
[2022-01-17 14:06] LABS: Troponin I High Sensitivity 8.7 pg/ml (0-14)
[2022-01-17] MEDS ORDERED: OPTIRAY 320 125ml IV ONE (14:55)
--- NOTE | 2022-01-17 15:11 | CT Scan Report ---
CHEST CTA for PULMONARY ARTERIES CT DOSE: 316.34 mGy.cm HISTORY: Atypical chest pain. Dizziness. Weakness. TECHNIQUE: Multiaxial CT images of the chest were performed following the intravenous administration of contrast to evaluate the pulmonary arteries. Maximal intensity projection images were also obtaine d. A dose lowering technique was utilized adhering to the principles of ALARA. COMPARISON STUDY: Chest CT 02/05/2018. FINDINGS: Limited views the upper abdomen demonstrate normal liver, spleen, and adrenal glands. Stabl e 1 cm right thyroid nodule. This does not meet CT criteria for follow-up. A few calcified mediastina l lymph nodes. No mediastinal or hilar lymphadenopathy. The heart remains mildly enlarged. Trace fadi cardial effusion, unchanged. No pleural effusions. Normal esophagus. No suspicious lytic or blastic o sseous lesions. No acute fractures identified within the chest. Normal caliber thoracic aorta with no evidence for dissection. The main pulmonary artery is slightly distended measuring up to 3.1 cm in d iameter. This suggests mild pulmonary arterial hypertension. This is also similar to the prior study. There are few calcified left hilar lymph nodes. No filling defects seen within the pulmonary arterie s to suggest a pulmonary embolus. There are few scattered punctate calcified granulomas within the lissett ngs. No pneumothorax. The central airways are patent. Left basilar linear densities consistent with s ubsegmental atelectasis or scarring. The 12 mm left lower lobe pulmonary nodule on image 113. This pr eviously measured 11 mm. No new focal lung consolidations to suggest pneumonia. No evidence for pulmo nary edema. IMPRESSION: 1. No evidence for pulmonary embolus. 2. Stable mild cardiomegaly and a trace pericardial effusion. 3. There is a 12 mm left lower lobe pulmonary nodule. This previously measured 11 mm. 4. No focal lung consolidations to suggest pneumonia. ACT 112: Negative or not required by law. Electronically signed by: Juan Hurtado M.D. 01/17/2022 3:10 PM
[2022-01-17] MEDS: MAGNESIUM SULFATE / D5W 1 GM/100 ML BAG IV SCH ×5 (15:21→23:00)
[2022-01-17] MEDS ORDERED: APIXABAN 5 MG TABLET PO ONE (17:15)
--- NOTE | 2022-01-17 17:32 | History & Physical Report ---
Date of Service January 17, 2022 Assessment & Plan (1) Tachycardia: Plan: Patient presented with tachycardia rates > 150 with irregular beats interpreted as aflutter vs. afib - Possible stress response as well as recent viral infection in the setting of low magnesium - patient rate spontaneously reduced to 50-60- with irregular rythm with periods of sinus noted - She has a CHADSvasc of -2 with unknown history of heart function - although her heart is enlarged on CT scan of chest - Will start on Eliquis 5mg PO now and then BID - following overall risk evaluation with cardiology - Noted with hypomag- following 2 grams patient appeared to remain in Sinus with review of telemetry later in admission - follow telemetry overnight - ECHO in am evaluate RWMA as well as trace pericardial effusion (2) Situational anxiety: Plan: Patient under deal of stress following passing of her in Sep of this year - she did get anxious this morning while getting ready to go outside for painting of her deck - Continue Trazadone- normally just takes at night (3) GERD (gastroesophageal reflux disease): Plan: Continue esomeprazole or equivalent (4) Insomnia: Plan: As above continue trazadone (5) Hypertension: Plan: Risk stratify and follow hemodynamics through PM- currently on HCTz - continue (6) Hypomagnesemia: Plan: Mag 1.5- replete follow ECG and symptoms (7) Elevated troponin: Plan: ELevation in HScTNI- likely related to elevation of HR with type II mismatch - 18-- follow q 6 hour with ECG - no acute ST changes appreciated (8) Lung nodule: Plan: Incidentally found on CTA of the chest - 12 mm left lower lobe pulmonary nodule. This previously measured 11 mm - Endorses smoking 1 cigarette her whole life - Follow up (9) Elevated random blood glucose level: Plan: Without diagnosis of DM- HGB A1c in AM (10) Pericardial effusion: Plan: Trace noted on CTA of chest- post viral infectious vs. other - CRP and ESR in AM History of Present Illness Primary Care Provider: KIM Christian 81 YOF with medcial history of: HTN, Anxiety, shingles 01/06, GERD, EGD with gastritis (2019). Patient comes to the EMD today referred from her PCP office where she went today for complains of dizziness and palpitations. She was noted to have HR in the 150-160 range associated with fluttering and feeling like she was going to pass out. Patient got up feeling well this morning and was to be painting her deck and felt dizzy like she was going to pass out. She went inside to rest and did not feel any better so she went to her PCP office. She does endorse being anxious and emotional since Sep-as her has just . She denies any associated symptoms of dyspnea, nausea/vomiting, or chest pain. The patient has no known history of Afib/flutter or cardiac disease that she is aware of or that is documented. In the EMD the patient had ECG done, CXR, CTA of the chest, and routine blood work done- she was given asa 324 mg and 1 GM of magnesium. Hospitalist service was consulted for admission. The patient's HR was noted to be 150 on arrival- required no medication to drop her HR- however she still remains with periods of irregularity and sinus rhythm through the interview process. Patient states that she does not drink or smoke and has no underlying heart disease that she knows of. She reports generally feeling well over the past 2 weeks, but does endorse being diagnosed with shingles in early December, where she was started on Valtrex. Her HScTNI was [address] elevation or depression noted when return back to [facility]. Her magnesium was noted to be 1.5 and replacement has been started. CTA of the chest was negative for PE but did not enlarged heart with small pericardial effusion and left lower lobe pulmonary nodule. The patient will be admitted for telemetry, complete ECHO in the morning, follow HR and rythm. We did discuss anticoagulation risks and benefits as her CHADSvasc2 is =2. Following disucssion she elected for DOAC and will be started on Apixaban 5mg now and then BID starting tomorrow. She requested [facility] to follow with as this is with whom her previously followed. Consultation and ECHO placed to [facility]. Allergies Allergy/AdvReac Type Severity Reaction Status Date / Time No Known Allergies Allergy Verified 01/17/22 14:45 Home Medications Medication Instructions Recorded Confirmed Type hydrochlorothiazide 25 mg tablet See Rx Instructions .ROUTE 08/29/21 01/17/22 Rx .COMPLEX #30 tablet esomeprazole magnesium 40 mg 40 mg PO DAILY #30 cap 09/21/21 01/17/22 Rx capsule,delayed release trazodone 50 mg tablet See Rx Instructions .ROUTE 01/12/22 01/17/22 Rx .COMPLEX #30 tablet acetaminophen 325 mg tablet 650 mg PO Q4H PRN #30 tab 01/18/22 Rx apixaban 5 mg tablet (Eliquis) 5 mg PO BID #60 tab 01/18/22 Rx potassium chloride 10 mEq 10 meq PO DAILY #30 tab 01/18/22 Rx tablet,extended release(part/cryst) Past Med/Surg History Medical History Anemia Generalized edema GERD (gastroesophageal reflux disease) GERD (gastroesophageal reflux disease) Insomnia Peripheral edema Pulmonary nodule Situational anxiety Surgical History History of bilateral cataract extraction History of bilateral tubal ligation History of colonoscopy History of dilatation and curettage History of esophagogastroduodenoscopy (EGD) History of tooth extraction History of varicose vein ligation bilt legs Hx of left breast biopsy benign Family History Mother Diabetes Sister Breast cancer Other No family history of adverse response to anesthesia Denies family history of Ovarian cancer Prostate cancer Myocardial infarction Colorectal cancer Social History Smoking Status: Never smoker Second Hand Exposure: No; Hx Alcohol Use: Yes Alcohol type: wine Hx Substance Use: No Preferred Language: Mohawk Communication Ability: Effective Visual Impairment: No Limitations Hearing Ability: Normal [employer] Supervisor Required: No Beliefs That Will Affect Care: None marital status: Current Living Situation: Alone current occupational status: retired Feels Safe at Home: Yes Dental Care, Regularly: Yes Seatbelt Use: always Sunscreen Use: Yes (Sometimes) Assistive Devices: None Review of Systems Review of Systems: REVIEW OF SYSTEMS: Constitutional: No fever, sweats or chills Eyes: No diplopia, no worsening or blurred vision ENT: normal hearing, no trouble swallowing Respiratory: No cough, sputum, dyspnea at rest or on exertion Cardiovascular: (+) tightness or palpitations and dizziness, Abdomen: No pain, nausea, vomiting, diarrhea or constipation Musculoskeletal: No joint pain, calf pain, swelling Neurologic: No weakness, numbness/tingling, or balance problems Psychiatric: (+) anxiety or depression Skin: No rash or itch Physical Exam Physical Exam: PHYSICAL EXAM: General: awake, alert, no apparent distress Head: Normocephalic, atraumatic ENT: PERRL, EOMI, no pharyngeal exudate, mucous membranes moist Neuro: AAO x 3, speech clear and appropriate, strength intact bilaterally 5/5, sensation intact and equal all extremities and dermatomes, no pronator drift Chest: equal rise and fall of the chest, no accessory muscle use, no heaves or thirlls, Clear to auscultation, on room air, Cardiac: irregular rate and rhythm with periods of sinus, telemetry reviewed, skin warm dry, cap refill <3 seconds, peripheral pulses +2 no JVD, no murmur, trace lower extremity edema at ankles GI: NABS x 4 quadrants, soft, nontender to palpation, no rebound, guarding or tenderness : Spontaneously voiding, no pain, no CVA tenderness, Extremities: Normal inspection, no peripheral edema or erythema, calfs nontender to palpation Psych: emotional with periods of tearing, under emotional stress Skin: no rash or erythema Results & Data Results & Data ([facility]) Vital Signs (Past 12 Hours) Vital Signs Temp Pulse Pulse Resp BP Pulse Ox 01/17/22 16:50 69 13 01/17/22 16:40 56 L 19 01/17/22 16:30 56 L 17 01/17/22 16:20 60 17 01/17/22 16:01 57 L 14 149/53 H 98 01/17/22 16:00 59 L 18 96 01/17/22 15:50 55 L 11 L 98 01/17/22 15:40 63 14 99 01/17/22 15:31 61 17 149/54 H 99 01/17/22 15:30 61 24 98 01/17/22 15:20 54 L 13 97 01/17/22 15:10 55 L 15 100 01/17/22 15:00 137/46 L 96 01/17/22 14:55 100 01/17/22 14:10 68 17 97 01/17/22 14:00 58 L 21 139/56 L 98 01/17/22 13:50 60 16 99 01/17/22 13:40 62 14 99 01/17/22 13:37 62 20 98 01/17/22 13:30 62 15 131/76 98 01/17/22 13:20 85 20 01/17/22 13:10 67 12 100 01/17/22 13:01 64 134/63 99 01/17/22 12:34 36.7 C 189 H 22 107/79 96 Laboratory Results Abnormal lab results 01/17/22 01/17/22 01/17/22 Range/Units 12:46 13:11 15:03 VBG pH 7.50 H (7.36-7.41) VBG pCO2 32 L (38-50) mmHg BUN/Creatinine Ratio 25.0 H (10-20) Glucose 118 H (70-99(Fasting)) mg/dl Magnesium 1.5 L (1.7-2.4) mg/dl Troponin I High Sens 18.0 H D (0-14) pg/ml Diagnostic Findings Chest X-Ray 01/17/22 12:53 XR chest 1V portable HISTORY: 81 years-old Female Chest Pain . Atypical chest pain with weakness COMPARISON: Chest radiographs 04/16/2019, chest CT 02/05/2018, 02/16/2015, PET CT 02/22/2015. TECHNIQUE: Portable AP view of the chest FINDINGS: The cardiac silhouette is mildly enlarged. Atherosclerosis of the thoracic aorta. No pneumothorax, pleural effusion or overt pulmonary edema. No airspace consolidation typical for pneumonia. Unchanged 1.2 cm circumscribed nodule of the left lower lobe. Degenerative changes of the shoulders and spine. IMPRESSION: 1. Cardiomegaly without acute process. 2. 1.2 cm left lower lobe nodule has only minimally increased in size from 2015. 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 ACT 112: Negative or not required by law. The above report was generated using voice recognition software. It may contain grammatical, syntax or spelling errors. Electronically signed by: Sean Joaquin M.D. 01/17/2022 1:11 PM Chest CTA 01/17/22 12:54 CHEST CTA for PULMONARY ARTERIES CT DOSE: 316.34 mGy.cm HISTORY: Atypical chest pain. Dizziness. Weakness. TECHNIQUE: Multiaxial CT images of the chest were performed following the intravenous administration of contrast to evaluate the pulmonary arteries. Maximal intensity projection images were also obtained. A dose lowering technique was utilized adhering to the principles of ALARA. COMPARISON STUDY: Chest CT 02/05/2018. FINDINGS: Limited views the upper abdomen demonstrate normal liver, spleen, and adrenal glands. Stable 1 cm right thyroid nodule. This does not meet CT criteria for follow-up. A few calcified mediastinal lymph nodes. No mediastinal or hilar lymphadenopathy. The heart remains mildly enlarged. Trace pericardial effusion, unchanged. No pleural effusions. Normal esophagus. No suspicious lytic or blastic osseous lesions. No acute fractures identified within the chest. Normal caliber thoracic aorta with no evidence for dissection. The main pulmonary artery is slightly distended measuring up to 3.1 cm in diameter. This suggests mild pulmonary arterial hypertension. This is also similar to the prior study. There are few calcified left hilar lymph nodes. No filling defects seen within the pulmonary arteries to suggest a pulmonary embolus. There are few scattered punctate calcified granulomas within the lungs. No pneumothorax. The central airways are patent. Left basilar linear densities consistent with subsegmental atelectasis or scarring. The 12 mm left lower lobe pulmonary nodule on image 113. This previously measured 11 mm. No new focal lung consolidations to suggest pneumonia. No evidence for pulmonary edema. IMPRESSION: 1. No evidence for pulmonary embolus. 2. Stable mild cardiomegaly and a trace pericardial effusion. 3. There is a 12 mm left lower lobe pulmonary nodule. This previously measured 11 mm. 4. No focal lung consolidations to suggest pneumonia. ACT 112: Negative or not required by law. Electronically signed by: Juan Hurtado M.D. 01/17/2022 3:10 PM Medications Administered Home Medications ibuprofen-diphenhydramine citrate 200 mg-38 mg tablet (Advil PM) 1 cap PO HS 10/16/18 [History Confirmed 01/17/22] potassium gluconate 595 mg (99 mg) tablet 595 mg PO BID tab 08/27/20 [History Confirmed 01/17/22] hydrochlorothiazide 25 mg tablet See Rx Instructions .ROUTE .COMPLEX #30 tablet 08/29/21 [Rx Confirmed 01/17/22] esomeprazole magnesium 40 mg capsule,delayed release 40 mg PO DAILY #30 cap 09/21/21 [Rx Confirmed 01/17/22] valacyclovir 1 gram tablet (Valtrex) 1,000 mg PO BID #14 tab 12/20/21 [Rx Confirmed 01/17/22] trazodone 50 mg tablet See Rx Instructions .ROUTE .COMPLEX #30 tablet 01/12/22 [Rx Confirmed 01/17/22] Active Medications Magnesium Sulfate/Dextrose (Magnesium Sulfate / D5w) 1 gm in 100 mls @ 50 mls/hr IV Q2H [facility] Stop: 01/17/22 23:14 Discontinued Medications Aspirin (Aspirin Chew 324 Mg) 324 mg PO NOW STA Stop: 01/17/22 12:54 Last Admin: 01/17/22 13:41 Dose: Not Given Documented by: [id number] Magnesium Sulfate/Dextrose (Magnesium Sulfate / D5w) 1 gm in 100 mls @ 100 mls/hr IV Q1H [facility] Stop: 01/17/22 16:44 Last Admin: 01/17/22 16:15 Dose: 100 mls/hr Documented by: [id number] Infusion: 01/17/22 16:15 Dose: 100 mls/hr Documented by: [id number] Admin: 01/17/22 15:21 Dose: 100 mls/hr Documented by: [id number] Ioversol (Optiray 320 125ml) 120 ml IV ONCE ONE Stop: 01/17/22 14:56 Last Admin: 01/17/22 14:45 Dose: 120 ml Documented by: [id number] Additional Comments: 17-JAN-2022 12:33:18Atrial flutter with variable A-V block with premature ventricular or aberrantly conducted complexes Left axis deviation Nonspecific ST and T wave abnormality Abnormal ECG No previous ECGs available 17-JAN-2022 12:55:29 Normal sinus rhythm Normal ECG When compared with ECG of 17-JAN-2022 12:33, (unconfirmed) Sinus rhythm has replaced Atrial flutter Vent. rate has decreased BY [address] no longer depressed in Inferior leads T wave inversion no longer evident in Lateral leads Code Status & VTE Plan Code Status CODE: DNR/DNI VTE: SCDs, Eliquis VTE Prophylaxis Plan VTE Prophylaxis will be ordered: Yes Supervising Physician Co-Signing Physician Notes Attending addendum: I have physically seen this patient, have supervised the SONDRA's activities, and agree with the H&P unless as otherwise noted. Assessment and Plan: Tachycardia-atrial flutter versus A. fib The patient will be admitted to telemetry for serial cardiac enzymes, serial EKG's, cardiac rhythm monitoring and a 2-D echocardiogram with Dopplers. Starting Eliquis 5 mg p.o. twice daily Optimize magnesium and potassium Consult cardiology GERD- Continue omeprazole/pantoprazole Hypomagnesemia- Magnesium 1.5 upon admission- Replace orally and IV repeat laboratories in a.m. Remaining orders and notations as noted PG Care Time/CCT Total # of Minutes Spent Total Time Spent with Patient: Total time spent is greater than 50% in coordination of care (as documented) at patient's floor/unit and/or counseling patient: Coding Level of Care Code 84338 Initial Inpt Care Lvl 3 Diagnoses Tachycardia R00.0 Situational anxiety F41.8 GERD (gastroesophageal reflux disease) K21.9 Insomnia G47.00 Hypertension I10 Hypomagnesemia E83.42 Elevated troponin R77.8 Lung nodule R91.1 Elevated random blood glucose level R73.09 Pericardial effusion I31.3
[2022-01-17] MEDS ORDERED: ACETAMINOPHEN 325 MG TAB PO PRN (19:26)
[2022-01-17] MEDS ORDERED: ONDANSETRON INJ 2 MG/ML 2 ML VIAL IV PRN (19:26)
[2022-01-17] MEDS ORDERED: METOPROLOL TARTRATE 1 MG/ML VIAL IV PRN (19:26)
[2022-01-17] MEDS ORDERED: traZODone HCL 50 MG TAB PO PRN (21:00)
[2022-01-18 07:57] LABS: Basophils # (auto) 0.06 K/uL (0-0.2); Basophils % (auto) 1.1 %; Eosinophils # (auto) 0.17 K/uL (0-0.5); Eosinophils % (auto) 3.1 %; Hematocrit (blood only) 39.1 % (37-47); Hemoglobin 12.9 g/dL (12.0-16.0); Immature Granulocytes # (auto) 0.01 K/uL (0.00-0.02); Immature Granulocytes % (auto) 0.2 %; Lymphocytes # (auto) 1.36 K/uL (1.2-3.4); Lymphocytes % (auto) 24.9 %; Mean Corpuscular Hemoglobin 29.8 pg (25-34); Mean Corpuscular Volume 90.3 fL (80-100); Mean Platelet Volume 9.5 fL (7.4-10.4); Monocytes # (auto) 0.42 K/uL (0.11-0.59); Monocytes % (auto) 7.7 %; Neutrophils # (auto) 3.45 K/uL (1.4-6.5); Platelet Count 251 K/uL (130-400); RDW Coefficient of Variation 13.6 % (11.5-14.5); RDW Standard Deviation 45.1 fL (36.4-46.3); Red Blood Count 4.33 M/uL (4.2-5.4); White Blood Count 5.47 K/uL (4.8-10.8)
[2022-01-18 08:24] LABS: Anion Gap 5 (3-11); BUN Creatinine Ratio 18.8 (10-20); Blood Urea Nitrogen 13 mg/dl (6-23); C Reactive Protein < 0.50 mg/dl (0-0.5); Calcium 9.1 mg/dl (8.5-10.1); Carbon Dioxide 29 mmol/L (21-32); Chloride 106 mmol/L (98-107); Chol HDL Ratio 2.7 (0-5); Cholesterol 210 mg/dl (0-200); Creatinine Clr Calc Pharmacy 60.9 ml/min; Est GFR (African American) 95.3 ml/min; Est GFR (Non-African American) 82.2 ml/min; Estimated Average Glucose 120 mg/dl; Glucose 89 mg/dl (70-99(Fasting)); HDL Cholesterol 77 mg/dl; Hemoglobin A1C 5.8 % (4.5-5.6); LDL Cholesterol Calculated 125 mg/dl; Magnesium 2.4 mg/dl (1.7-2.4); Potassium 3.7 mmol/L (3.5-5.1); Sodium 140 mmol/L (136-145); Triglycerides 41 mg/dl (0-150); VLDL Cholesterol 8 mg/dl (0-30)
[2022-01-18 08:38] LABS: Thyroid Stimulating Hormone 4.78 uIu/ml (0.300-4.500)
[2022-01-18 08:44] LABS: Troponin I High Sensitivity 12.2 pg/ml (0-14)
[2022-01-18] MEDS ORDERED: PANTOprazole 40 MG TAB PO SCH (09:00)
[2022-01-18] MEDS ORDERED: APIXABAN 5 MG TABLET PO SCH (09:00)
[2022-01-18] MEDS ORDERED: hydroCHLOROthiazide 25 MG TAB PO SCH (09:00)
[2022-01-18 09:10] LABS: T4 Free Thyroxine 1.12 ng/dl (0.61-1.60)
[2022-01-18] MEDS ORDERED: POTASSIUM CHLORIDE CRTAB 20 MEQ TABCR PO STA (09:14)
--- NOTE | 2022-01-18 09:57 | XCELERA ---
[id number] \\[id number]
[2022-01-18] MEDS ORDERED: POTASSIUM CHLORIDE 20 MEQ/15 ML UDC PO STA (10:50)
--- NOTE | 2022-01-18 11:02 | Cardiology Consultation ---
Date of Consultation January 18, 2022 Assessment & Plan (1) Paroxysmal A-fib: Patient is an 81-year-old female who presents for evaluation of symptoms of dizziness and heart pounding and found to be in atrial fibrillation flutter with elevated ventricular response rate. Patient spontaneously converted to sinus rhythm without medical intervention EKGs postconversion without ST segment abnormalities or Q waves sinus bradycardia press Echocardiogram preserved LV systolic function Chest CT without pulmonary embolus Findings reflect new onset paroxysmal atrial fibrillation flutter with borderline tachybradycardia syndrome [id number] 2 score of 3 Recommendations: Discussed atrial fibrillation flutter in detail with patient as well as her son-in-law who is a physician via phone. Patient appropriately anticoagulated with Eliquis would continue. Minimal elevation in troponins likely from rate no signs of ischemia otherwise AV duane blocking drugs, antiarrhythmic contraindicated given resting bradycardia, discussed potential need for pacemaker in future should she have more frequent/recurrent events No overt precipitants though patient under significant stress and recent shingles Would change potassium supplement to potassium prescription at 10 mEq per day given relative hypokalemia Will arrange follow-up for cardiology (Giacomo Sagastume) after discharge in 1 to 2 weeks. Patient to return with any recurrent symptoms. patient stable for discharge today History of Present Illness Reason for Consultation: Paroxysmal atrial fibrillation Requesting Physician: Dr. Silva Attending Physician: Cyndee Silva MD History of Present Illness Patient is an 81-year-old female without prior history of cardiac disease and minimal underlying medical problems as listed below. Patient presents this admission noting while working painting her patio yesterday morning developed a sudden sensation of heart pounding fluttering and mild pressure and presented to primary care's office where she was found to be in atrial fibrillation flutter with elevated ventricular response. Patient presented to [facility] and spontaneously converted to sinus rhythm without medical intervention. She is referred now for further evaluation. Patient denies prior history of arrhythmias, valvular heart disease, tachypalpitations, dizziness, lightheadedness, syncope, near syncope. No history of angina, congestive heart failure, rheumatic fever scarlet fever. No history of renal or hepatic disease, TIA or stroke. Patient is not diabetic Denies history of hypertension but on low-dose diuretic with hydrochlorothiazide for peripheral edema Recent history notable for the loss of her with emotional grieving and shingles approximately 1 month ago with resolve of symptoms Allergies Allergy/AdvReac Type Severity Reaction Status Date / Time No Known Allergies Allergy Verified 01/17/22 14:45 Home Medications Medication Instructions Recorded Confirmed Type ibuprofen-diphenhydramine citrate 1 cap PO HS 10/16/18 01/17/22 History 200 mg-38 mg tablet (Advil PM) potassium gluconate 595 mg (99 mg) 595 mg PO BID tab 08/27/20 01/17/22 History tablet hydrochlorothiazide 25 mg tablet See Rx Instructions .ROUTE 08/29/21 01/17/22 Rx .COMPLEX #30 tablet esomeprazole magnesium 40 mg 40 mg PO DAILY #30 cap 09/21/21 01/17/22 Rx capsule,delayed release valacyclovir 1 gram tablet 1,000 mg PO BID #14 tab 12/20/21 01/17/22 Rx (Valtrex) trazodone 50 mg tablet See Rx Instructions .ROUTE 01/12/22 01/17/22 Rx .COMPLEX #30 tablet Patient History Medical History Anemia Generalized edema GERD (gastroesophageal reflux disease) GERD (gastroesophageal reflux disease) Insomnia Peripheral edema Pulmonary nodule Situational anxiety Surgical History History of bilateral cataract extraction History of bilateral tubal ligation History of colonoscopy History of dilatation and curettage History of esophagogastroduodenoscopy (EGD) History of tooth extraction History of varicose vein ligation bilt legs Hx of left breast biopsy benign Family History Mother Diabetes Sister Breast cancer Other No family history of adverse response to anesthesia Denies family history of Ovarian cancer Prostate cancer Myocardial infarction Colorectal cancer Social History Smoking Status: Never smoker Second Hand Exposure: No; Hx Alcohol Use: Yes Alcohol type: wine Hx Substance Use: No Preferred Language: Lithuanian Communication Ability: Effective Visual Impairment: No Limitations Hearing Ability: Normal Tie Loader Required: No Beliefs That Will Affect Care: None marital status: Current Living Situation: Alone current occupational status: retired Other Information That Helps Us Care for You: No Feels Safe at Home: Yes Safety Concerns: Feels Safe At This Time Dental Care, Regularly: Yes Seatbelt Use: always Sunscreen Use: Yes (Sometimes) Assistive Devices: None Review of Systems Review of Systems: All systems reviewed & are unremarkable except as noted in HPI & below Physical Exam Constitutional: WD/WN, vitals as above Eyes: PERRL, conjunctivae normal, anicteric sclerae ENMT: external ear and nose normal, oropharynx normal Neck: trachea midline, no thyromegaly Respiratory: normal respiratory effort, lungs clear to auscultation Cardiovascular: Rate/Rhythm: regular rate and regular rhythm Heart Sounds: normal S1 and normal S2; no gallop and no murmur Palpation: normal PMI Vessels: normal carotid upstroke and radial pulses present; no JVD and no carotid bruit Extremities: no edema Gastrointestinal (Abdomen): normal bowel sounds, soft, nontender, no hepatosplenomegaly Musculoskeletal: no cyanosis or clubbing, extremities motor strength 5/5 Skin: no rashes, warm and dry Neurologic: PERRL, EOMI, accommodation nl, no face palsy, no dysarthria Psychiatric: A+Ox3, euthymic affect Results & Data ([facility]) Vital Signs (Past 12 Hours) Vital Signs Temp Pulse Pulse Resp BP Pulse Ox 01/18/22 07:42 52 L 01/18/22 07:29 36.3 C L 47 L 18 133/67 97 01/18/22 04:37 36.5 C 46 L 20 120/63 95 01/18/22 01:09 52 L Laboratory Results Laboratory Results - last 24 hr 01/17/22 01/17/22 01/17/22 12:46 12:46 12:46 WBC 6.99 RBC 4.81 Hgb 14.6 Hct 43.9 MCV 91.3 MCH 30.4 MCHC 33.3 RDW Std Deviation 45.0 RDW Coeff of Iain 13.4 Plt Count 285 MPV 10.1 Immature Gran % (Auto) 0.1 Neut % (Auto) 68.5 Lymph % (Auto) 23.3 [place] % (Auto) 5.4 Eos % (Auto) 2.1 Baso % (Auto) 0.6 Neut # (Auto) 4.78 Lymph # (Auto) 1.63 [place] # (Auto) 0.38 Eos # (Auto) 0.15 Baso # (Auto) 0.04 Immature Gran # (Auto) 0.01 ESR PT 11.1 INR 1.0 APTT 27.3 PTT Ratio 1.0 VBG pH VBG pCO2 VBG pO2 VBG HCO3 VBG O2 Saturation VBG Base Excess Barometric Pressure Sodium 139 Potassium 3.7 Chloride 104 Carbon Dioxide 24 Anion Gap 11 BUN 20 Creatinine 0.80 Est Cr Clr Drug Dosing 57.9 Est GFR ( Amer) 80.7 Est GFR (Non-Af Amer) 69.6 BUN/Creatinine Ratio 25.0 H Glucose 118 H Estimat Average Glucose Hemoglobin A1c Calcium 9.5 Magnesium 1.5 L Troponin I High Sens 8.7 C-Reactive Protein Triglycerides Cholesterol LDL Cholesterol, Calc VLDL Cholesterol, Calc HDL Cholesterol Cholesterol/HDL Ratio Lipase 26 TSH Free T4 SARS-CoV-2, RNA, NAAT 01/17/22 01/17/22 01/17/22 13:11 15:03 17:59 WBC RBC Hgb Hct MCV MCH MCHC RDW Std Deviation RDW Coeff of Iain Plt Count MPV Immature Gran % (Auto) Neut % (Auto) Lymph % (Auto) [place] % (Auto) Eos % (Auto) Baso % (Auto) Neut # (Auto) Lymph # (Auto) [place] # (Auto) Eos # (Auto) Baso # (Auto) Immature Gran # (Auto) ESR PT INR APTT PTT Ratio VBG pH 7.50 H VBG pCO2 32 L VBG pO2 32 VBG HCO3 25 VBG O2 Saturation 64.9 VBG Base Excess 2.2 Barometric Pressure 732.7 Sodium Potassium Chloride Carbon Dioxide Anion Gap BUN Creatinine Est Cr Clr Drug Dosing Est GFR ( Amer) Est GFR (Non-Af Amer) BUN/Creatinine Ratio Glucose Estimat Average Glucose Hemoglobin A1c Calcium Magnesium Troponin I High Sens 18.0 H D 21.8 H C-Reactive Protein Triglycerides Cholesterol LDL Cholesterol, Calc VLDL Cholesterol, Calc HDL Cholesterol Cholesterol/HDL Ratio Lipase TSH Free T4 SARS-CoV-2, RNA, NAAT 01/17/22 01/18/22 01/18/22 Unknown 00:36 07:21 WBC 5.47 RBC 4.33 Hgb 12.9 Hct 39.1 MCV 90.3 MCH 29.8 MCHC 33.0 RDW Std Deviation 45.1 RDW Coeff of Iain 13.6 Plt Count 251 MPV 9.5 Immature Gran % (Auto) 0.2 Neut % (Auto) 63.0 Lymph % (Auto) 24.9 Culberson % (Auto) 7.7 Eos % (Auto) 3.1 Baso % (Auto) 1.1 Neut # (Auto) 3.45 Lymph # (Auto) 1.36 [place]berson # (Auto) 0.42 Eos # (Auto) 0.17 Baso # (Auto) 0.06 Immature Gran # (Auto) 0.01 ESR PT INR APTT PTT Ratio VBG pH VBG pCO2 VBG pO2 VBG HCO3 VBG O2 Saturation VBG Base Excess Barometric Pressure Sodium Potassium Chloride Carbon Dioxide Anion Gap BUN Creatinine Est Cr Clr Drug Dosing Est GFR ( Amer) Est GFR (Non-Af Amer) BUN/Creatinine Ratio Glucose Estimat Average Glucose Hemoglobin A1c Calcium Magnesium Troponin I High Sens 17.1 H D C-Reactive Protein Triglycerides Cholesterol LDL Cholesterol, Calc VLDL Cholesterol, Calc HDL Cholesterol Cholesterol/HDL Ratio Lipase TSH Free T4 SARS-CoV-2, RNA, NAAT NEGATIVE 01/18/22 01/18/22 01/18/22 07:21 07:21 07:21 WBC RBC Hgb Hct MCV MCH MCHC RDW Std Deviation RDW Coeff of Iain Plt Count MPV Immature Gran % (Auto) Neut % (Auto) Lymph % (Auto) [place] % (Auto) Eos % (Auto) Baso % (Auto) Neut # (Auto) Lymph # (Auto) [place] # (Auto) Eos # (Auto) Baso # (Auto) Immature Gran # (Auto) ESR 9 PT INR APTT PTT Ratio VBG pH VBG pCO2 VBG pO2 VBG HCO3 VBG O2 Saturation VBG Base Excess Barometric Pressure Sodium 140 Potassium 3.7 Chloride 106 Carbon Dioxide 29 Anion Gap 5 BUN 13 Creatinine 0.69 Est Cr Clr Drug Dosing 60.9 Est GFR ( Amer) 95.3 Est GFR (Non-Af Amer) 82.2 BUN/Creatinine Ratio 18.8 Glucose 89 Estimat Average Glucose 120 Hemoglobin A1c 5.8 H Calcium 9.1 Magnesium 2.4 Troponin I High Sens 12.2 D C-Reactive Protein < 0.50 Triglycerides 41 Cholesterol 210 H LDL Cholesterol, Calc 125 VLDL Cholesterol, Calc 8 HDL Cholesterol 77 Cholesterol/HDL Ratio 2.7 Lipase TSH Free T4 SARS-CoV-2, RNA, NAAT 01/18/22 07:21 WBC RBC Hgb Hct MCV MCH MCHC RDW Std Deviation RDW Coeff of Iain Plt Count MPV Immature Gran % (Auto) Neut % (Auto) Lymph % (Auto) [place] % (Auto) Eos % (Auto) Baso % (Auto) Neut # (Auto) Lymph # (Auto) [place] # (Auto) Eos # (Auto) Baso # (Auto) Immature Gran # (Auto) ESR PT INR APTT PTT Ratio VBG pH VBG pCO2 VBG pO2 VBG HCO3 VBG O2 Saturation VBG Base Excess Barometric Pressure Sodium Potassium Chloride Carbon Dioxide Anion Gap BUN Creatinine Est Cr Clr Drug Dosing Est GFR ( Amer) Est GFR (Non-Af Amer) BUN/Creatinine Ratio Glucose Estimat Average Glucose Hemoglobin A1c Calcium Magnesium Troponin I High Sens C-Reactive Protein Triglycerides Cholesterol LDL Cholesterol, Calc VLDL Cholesterol, Calc HDL Cholesterol Cholesterol/HDL Ratio Lipase TSH 4.780 H Free T4 1.12 SARS-CoV-2, RNA, NAAT Diagnostic Findings Echocardiogram with preserved LV function no wall motion abnormalities no valvular disease. Estimated pulmonary pressures borderline elevated peak tricuspid valve regurgitant velocity 2.9 m percent CTA chest no pulmonary embolus infiltrate or effusion
--- NOTE | 2022-01-18 13:14 | Discharge Summary ---
Date of Service January 18, 2022 Admission HPI Per Admitting Provider 81 YOF with medcial history of: HTN, Anxiety, shingles 01/06, GERD, EGD with gastritis (2018). Patient comes to the EMD today referred from her PCP office where she went today for complains of dizziness and palpitations. She was noted to have HR in the 150-160 range associated with fluttering and feeling like she was going to pass out. Patient got up feeling well this morning and was to be painting her deck and felt dizzy like she was going to pass out. She went inside to rest and did not feel any better so she went to her PCP office. She does endorse being anxious and emotional since Sep-as her has just . She denies any associated symptoms of dyspnea, nausea/vomiting, or chest pain. The patient has no known history of Afib/flutter or cardiac disease that she is aware of or that is documented. In the EMD the patient had ECG done, CXR, CTA of the chest, and routine blood work done- she was given asa 324 mg and 1 GM of magnesium. Hospitalist service was consulted for admission. The patient's HR was noted to be 150 on arrival- required no medication to drop her HR- however she still remains with periods of irregularity and sinus rhythm through the interview process. Patient states that she does not drink or smoke and has no underlying heart disease that she knows of. She reports generally feeling well over the past 2 weeks, but does endorse being diagnosed with shingles in early December, where she was started on Valtrex. Her HScTNI was [address] elevation or depression noted when return back to [facility]. Her magnesium was noted to be 1.5 and replacement has been started. CTA of the chest was negative for PE but did not enlarged heart with small pericardial effusion and left lower lobe pulmonary nodule. The patient will be admitted for telemetry, complete ECHO in the morning, follow HR and rythm. We did discuss anticoagulation risks and benefits as her CHADSvasc2 is =2. Following disucssion she elected for DOAC and will be started on Apixaban 5mg now and then BID starting tomorrow. She requested [facility] to follow with as this is with whom her previously followed. Consultation and ECHO placed to [facility]. Principal Diagnosis Rapid atrial flutter Discharge Exam Constitutional WD/WN, vitals as above Eyes + anicteric sclerae ENMT external ear and nose normal, oropharynx normal Neck trachea midline, no thyromegaly Respiratory normal respiratory effort, lungs clear to auscultation Cardiovascular RRR, no murmur, no edema Chest (Breasts) Chest: normal inspection of chest Gastrointestinal (Abdomen) normal bowel sounds, soft, nontender, no hepatosplenomegaly Musculoskeletal Extremities: extremities normal to inspection; no cyanosis and no clubbing Skin no rashes, warm and dry Neurologic moves all extremities and awake; no focal motor deficits Psychiatric A+Ox3, euthymic affect Lymphatic no lymphedema Discharge Data Allergies Allergy/AdvReac Type Severity Reaction Status Date / Time No Known Allergies Allergy Verified 01/17/22 14:45 Consultations 01/17/22 15:14 ED Decision to Admit Stat 01/17/22 19:26 Consult Cardiology Routine Ordered Studies 01/17/22 12:54 CT angio chest PE protocol Stat Echocardiogram Hospital Course (1) Paroxysmal A-fib: Patient presented with tachycardia rates > 150 with irregular beats interpreted as aflutter vs. afib - Possible stress response as well as recent viral infection in the setting of low magnesium - patient spontaneously converted to sinus bradycardia with rates in the 50s to 60s - She has a CHADSvasc score of 3 - start on Eliquis 5mg PO BID - Noted with hypomag- following 2 grams patient appeared to remain in Sinus with review of telemetry later in admission -Remains in sinus rhythm throughout 24 hours in the hospital - ECHO was with preserved LV function Appreciate cardiology consultation from Dr. Calderon of [facility]ology- no AV duane blocking drugs or antiarrhythmic given her resting bradycardia. He discussed the potential need for pacemaker in the future if she had more frequent or recurrent events. He also recommended a daily potassium prescription of 10 M EQ once daily. Follow-up with cardiology in 1 to 2 weeks. (2) Situational anxiety: Patient under deal of stress following passing of her in Sep of this year - Continue Trazodone- normally just takes at night (3) GERD (gastroesophageal reflux disease): Continue PPI (4) Insomnia: As above continue trazodone (5) Hypertension: Risk stratify and follow hemodynamics through PM- currently on HCTz - continue (6) Hypomagnesemia: Mag 1.5-on arrival Replete and repeat in the morning was normal (7) Elevated troponin: ELevation in HScTNI- likely related to elevation of HR with type II mismatch - 67-21-10-12-trended downward - no acute ST changes appreciated Echo with preserved LVEF and no wall motion abnormalities (8) Lung nodule: Incidentally found on CTA of the chest - 12 mm left lower lobe pulmonary nodule. This previously measured 11 mm - Endorses smoking 1 cigarette her whole life - Follow up as an outpatient recommended (9) Elevated random blood glucose level: Without diagnosis of DM- HGB A1c here in the prediabetes range at 5.8% Follow-up with PCP (10) Pericardial effusion: Trace noted on CTA of chest- post viral infectious vs. other - CRP and ESR both normal and no mention of pericardial effusion on echocardiogram Disposition-stable for discharge home Total Time Total Time Spent Total Time Spent (In Minutes): 35 minutes Discharge Plan Discharge Items Patient Disposition: Home - Self-Care Reason For Visit: DIZZINESS Discharge Diagnosis: Rapid atrial flutter Condition on Discharge: Good Activity: Resume your previous activity Non-emergency contact: Primary Care Provider and Orthophotography Technician Call non-emergency contact if: you have any medication questions and your symptoms worsen Follow-up/Referrals: Gracie Sheffield CRNP [Primary Care Provider] - 01/26/22 10:30 am () Giacomo Sagastume [Physician Hand Bander] - (Mr. Sagastume's office will contact you with a follow up appointment within 2-3 weeks after discharge.) Diet: Regular Addtl Attending Provider Instructions: Please take the Eliquis to prevent strokes/blood clots that can form when you have atrial flutter. You are also being started on a potassium pill to keep your potassium levels normal. You should not take Advil or other NSAIDs while on Eliquis as NSAIDs also thin the blood. You can take Tylenol as needed for pain instead. Follow up with your PCP and with the Orthophotography Technician as scheduled. Incidentally noted was a nodule in your lung that is slightly increased in size from previous. You were also found to have signs of pulmonary hypertension. Please have your PCP refer to you a Formal Service Waiter and have repeat CT scan of the chest in the future for the nodule. Pending Studies at Discharge: No Stand-Alone Forms: My [facility] Medications and DC Order Prescriptions: New acetaminophen 325 mg Tablet 650 mg PO Q4H PRN (Reason: pain) Qty: 30 RF: 0 Eliquis 5 mg Tablet 5 mg PO BID Qty: 60 RF: 0 potassium chloride 10 mEq Tablet,Er Particles/Crystals 10 meq PO DAILY Qty: 30 RF: 0 Continued hydrochlorothiazide 25 mg tablet See Rx Instructions .ROUTE .COMPLEX Qty: 30 RF: 11 trazodone 50 mg tablet See Rx Instructions .ROUTE .COMPLEX Qty: 30 RF: 11 esomeprazole magnesium 40 mg capsule,delayed release(DR/EC) 40 mg PO DAILY Qty: 30 RF: 2 Discontinued potassium gluconate 595 mg (99 mg) tablet 595 mg PO BID RF: 0 valacyclovir [Valtrex] 1 gram tablet 1,000 mg PO BID Qty: 14 RF: 2 Advil PM 200-38 mg Tablet 1 cap PO HS RF: 0 Discharge Orders: Discharge Order (Routine); Ordered 01/18/22 Ordered By: Cyndee Goldsmith/Other Patient Handouts: Eliquis Oral Tablet 5 mg, Hypomagnesemia Dc Admission Data Admit Date/Time: 01/17/22 17:12 Attending Provider: Cyndee Silva Admit Provider: Raghav Reid Primary Care Provider: Gracie Sheffield Other Providers: Raghav Reid ; Paul Brody Other Interventions: Discharge Summary Assessment (RN) Last Done: 01/18/22 13:36 Coding Level of Care Code D/C DAY MANAGEMENT >30 MINS Diagnoses Situational anxiety F41.8 GERD (gastroesophageal reflux disease) K21.9 Insomnia G47.00 Hypertension I10 Hypomagnesemia E83.42 Elevated troponin R77.8 Lung nodule R91.1 Elevated random blood glucose level R73.09 Pericardial effusion I31.3 Paroxysmal A-fib I48.0
[2022-01-19] MEDS ORDERED: POTASSIUM CHLORIDE 10 MEQ TABCR PO SCH (09:00)
--- NOTE | 2022-01-19 09:00 | Electrocardiogram Report ---
Test Reason : Blood Pressure : / mmHG Vent. Rate : 129 BPM Atrial Rate : 277 BPM P-R Int : 000 ms QRS Dur : 094 ms QT Int : 348 ms P-R-T Axes : 000 -31 112 degrees QTc Int : 509 ms Atrial flutter with variable A-V block with premature ventricular or aberrantly conducted complexes Left axis deviation Nonspecific ST and T wave abnormality Abnormal ECG No previous ECGs available Confirmed by Jeff Ashton ([id number]) on 01/19/2022 9:00:25 AM Referred By: REFERRED SELF Confirmed By:Jeff Ashton
--- NOTE | 2022-01-19 09:03 | Electrocardiogram Report ---
Test Reason : Blood Pressure : / mmHG Vent. Rate : 064 BPM Atrial Rate : 064 BPM P-R Int : 148 ms QRS Dur : 098 ms QT Int : 454 ms P-R-T Axes : 078 -19 069 degrees QTc Int : 468 ms Normal sinus rhythm Normal ECG When compared with ECG of 17-JAN-2022 12:33, (unconfirmed) Sinus rhythm has replaced Atrial flutter Vent. rate has decreased BY [address] no longer depressed in Inferior leads T wave inversion no longer evident in Lateral leads Confirmed by Jeff Ashton ([id number]) on 01/19/2022 9:03:20 AM Referred By: REFERRED SELF Confirmed By:Jeff Ashton
--- NOTE | 2022-01-19 10:31 | Electrocardiogram Report ---
Test Reason : Blood Pressure : / mmHG Vent. Rate : 052 BPM Atrial Rate : 052 BPM P-R Int : 152 ms QRS Dur : 098 ms QT Int : 536 ms P-R-T Axes : 058 -18 034 degrees QTc Int : 498 ms Sinus bradycardia with Premature atrial complexes Prolonged QT Abnormal ECG When compared with ECG of 17-JAN-2022 12:55, (unconfirmed) Premature atrial complexes are now Present Confirmed by Jeff Ashton ([id number]) on 01/19/2022 10:31:01 AM Referred By: REFERRED SELF Confirmed By:Jeff Ashton
== END 2022-01-18 15:25 | disposition home or self-care (01) | DRG 309 ==
LOC: ED 12:25 → EDINP 17:12 → SUATTDRO 17:12 → 2W 21:07
DX: F41.8 Other specified anxiety disorders; E83.42 Hypomagnesemia; I31.3 Pericardial effusion (noninflammatory); I48.0 Paroxysmal atrial fibrillation; Z98.42 Cataract extraction status, left eye; G47.00 Insomnia, unspecified; I48.92 Unspecified atrial flutter; K21.9 Gastro-esophageal reflux disease without esophagitis; Z98.41 Cataract extraction status, right eye; I24.8 Other forms of acute ischemic heart disease; Z86.19 Personal history of other infectious and parasitic diseases; Z98.51 Tubal ligation status

== ENCOUNTER 2025-03-14 15:11 | Inpatient (IN) ==
[2025-03-14 16:46] LABS: Basophils # (auto) 0.08 K/uL (0.00-0.20); Basophils % (auto) 1.2 %; Eosinophils # (auto) 0.12 K/uL (0.00-0.50); Eosinophils % (auto) 1.9 %; Hematocrit (blood only) 40.7 % (37.0-47.0); Hemoglobin 13.6 g/dl (12.0-16.0); Immature Granulocytes # (auto) 0.01 K/uL (0.01-0.20); Immature Granulocytes % (auto) 0.2 %; Lymphocytes % (auto) 20.2 %; Mean Corpuscular Hemoglobin 29.4 pg (25.0-34.0); Mean Corpuscular Hgb Conc 33.4 g/dL (32.0-36.0); Mean Corpuscular Volume 88.1 fL (80.0-100.0); Mean Platelet Volume 9.7 fL (9.4-12.4); Monocytes # (auto) 0.44 K/uL (0.11-0.59); Monocytes % (auto) 6.8 %; Neutrophils # (auto) 4.49 K/uL (1.40-6.50); Neutrophils % (auto) 69.7 %; Platelet Count 257 K/uL (130-400); RDW Standard Deviation 38.6 fL (36.4-46.3); Red Blood Count 4.62 M/uL (4.20-5.40); White Blood Count 6.44 K/ul (4.8-10.8)
[2025-03-14 16:54] LABS: Albumin Globulin Ratio 1.2 (0.9-2); BUN Creatinine Ratio 23.3 (10-20); Bilirubin,Total 0.6 mg/dl (0.2-1.0); Creatinine Clr Calc Pharmacy 61.3 ml/min; Globulin 3.2 gm/dl (2.5-4.0); Magnesium 1.7 mg/dl (1.7-2.4); Potassium 3.8 mmol/L (3.5-5.1); Total Protein 6.9 gm/dl (6.0-8.3)
[2025-03-14] MEDS: SODIUM CHLORIDE 0.9% 500 ML IV SCH (16:54)
[2025-03-14 17:00] LABS: Troponin I High Sensitivity 4.5 pg/ml (0-14)
[2025-03-14 17:09] LABS: Thyroid Stimulating Hormone 4.352 uIu/ml (0.300-4.500)
[2025-03-14 17:16] LABS: Appearance Urine Clear (Clear); Bacteria Urine Automated None Seen (None Seen); Bilirubin Urine Negative (Negative); Blood Urine Trace (Negative); Cast Urine Automated 0-2 /lpf (0-2); Color Urine Yellow; Epithelial Cell Urine Auto 0-2 /hpf (0-2); Glucose Urine UA Negative (Negative); Ketones Urine Negative (Negative); Leukocyte Esterase Urine Trace (Negative); Nitrite Urine Negative (Negative); Protein Urine Negative (Negative); Urobilinogen Urine Negative (Negative); WBC Urine Automated 0-5 /hpf (0-5); pH Urine 7.5 (4.5-7.5)
--- NOTE | 2025-03-14 17:24 | XRay Report ---
Chest radiograph, one view History: Chest pain Comparison: 02/20/2025 Findings: Single AP view of the chest performed. No focal consolidation or pleural effusion. No pneumothorax. The cardiomediastinal silhouette is within normal limits. Left chest wall dual-lead AICD. normal pulmonary vascularity. No evidence for lymphadenopathy. No visualized bony or soft tissue abnormality. Impression: Normal chest radiograph Electronically signed by Edgardo Beverly 03-14-2025 5:22 PM
--- NOTE | 2025-03-14 18:24 | History & Physical Report ---
Date of Service March 14, 2025 Assessment & Plan (1) Near syncope: Plan: Admit to PCU Patient with pacemaker Given patient with above symptoms., will increase dose of metoprolol in AM as patient already took 50mg today. (25mg in am and 25 mg at 1pm after her event) consult cardio Place on tele. will closely monitor. 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 Patient presents with above symptoms. Patient had a pacemaker 3 weeks ago. SHebeen feeling well since but today at around lunch time, when trying to get up she felt like she was going to pass out. She complained of some palpitations. Her pacemaker was interrogated and showed a 4 second run of V tach. Patient reports difficutly provided more history. Vitals are stable in the ED. Allergies Allergy/AdvReac Type Severity Reaction Status Date / Time No Known Allergies Allergy Verified 03/02/25 11:52 Home Medications Medication Instructions Recorded Confirmed Type acetaminophen 325 mg tablet 650 mg (2 x 325 mg) PO Q4H PRN 01/18/22 03/14/25 Rx pain #30 tabs diphenhydramine 25 1 tab PO HS 03/15/22 03/14/25 History mg-acetaminophen 500 mg tablet (Tylenol PM Extra Strength) melatonin 10 mg capsule 10 mg PO HS PRN Sleep 01/03/23 03/14/25 History multivitamin 1 tab PO DAILY 01/03/23 03/14/25 History escitalopram oxalate 10 mg tablet 10 mg PO QAM #90 tabs 06/26/24 03/14/25 Rx (Lexapro) apixaban 5 mg tablet (Eliquis) 5 mg PO BID #60 tabs 07/31/24 03/14/25 Rx magnesium 200 mg tablet 200 mg PO DAILY 11/13/24 03/14/25 History metoprolol tartrate 25 mg tablet 25 mg PO DAILY PRN Afib #10 tabs 11/13/24 03/14/25 Rx lorazepam 0.5 mg tablet 0.5 mg PO BID PRN Anxiety #20 tabs 02/10/25 03/14/25 Rx metoprolol succinate 25 mg 25 mg PO BID #60 tabs 03/15/25 Rx tablet,extended release 24 hr Past Med/Surg History Problem List Cardiac pacemaker in situ Pre-syncope (Acute) NSVT (nonsustained ventricular tachycardia) (Acute) UTI (urinary tract infection) Bradycardia Tachy-nereida syndrome Near syncope (Acute) Wide-complex tachycardia (Acute) Atrial fibrillation with rapid ventricular response (Acute) Sleep disturbances Elevated cholesterol Atrial fibrillation DX'D 01/17/22 [facility]-PLACED ON ELIQUIS-F/U [facility] Elevated blood sugar History of atrial fibrillation 1 episode 02/05. cardioverted, on eliquis lifetime. per cardio due to resting bradycardia, avoid antiarrhythmic drugs and AV duane blocking drugs Ganglion cyst of left foot History of colon polyps Vitamin D deficiency Hypokalemia Hypertension Lung nodule non smoker, pt declines further CT scan Encounter for pre-operative examination GERD (gastroesophageal reflux disease) Anxiety Situational anxiety (Acute) Insomnia (Chronic) Peripheral edema (Chronic) Pulmonary nodule (Chronic) Medical History Hiatal hernia Troponin level elevated Pericardial effusion Elevated random blood glucose level Abnormal EKG Generalized edema Anemia HX Surgical History Hx of left breast biopsy benign History of dilatation and curettage History of bilateral tubal ligation History of varicose vein ligation bilt legs History of colonoscopy History of esophagogastroduodenoscopy (EGD) History of tooth extraction History of bilateral cataract extraction Family History Mother Diabetes Sister Breast cancer Other No family history of adverse response to anesthesia Denies family history of Ovarian cancer Prostate cancer Myocardial infarction Colorectal cancer Social History Smoking Status: Never smoker Second Hand Exposure: No (hx); Do You Dip or Chew Tobacco: No; Hx Alcohol Use: No Hx Substance Use: No Preferred Language: French Communication Ability: Effective Visual Impairment: No Limitations Hearing Ability: Use of Hearing Aid Block Sorter Required: No Beliefs That Will Affect Care: None marital status: / Current Living Situation: Alone current occupational status: retired How many Children do You have: 4 Feels Safe at Home: Yes Childhood Exposure to Second-Hand Smoke: No Diet: regular caffeine: Yes (coffee or tea) during the past year weight has: remained stable Dental Care, Regularly: Yes Physical Activity Frequency: 5-6 Times per Week Seatbelt Use: always Sunscreen Use: Yes (Sometimes) Assistive Devices: Glasses and Hearing Aid - Bilateral Review of Systems Constitutional: no fever Eyes: no blind spots Ear, Nose, Mouth, Throat: no ear pain Respiratory: no cough Cardiovascular: no chest pain Gastrointestinal: no abdominal pain Genitourinary: no dysuria Musculoskeletal: no back pain Integumentary: no acne Neurologic: no gait abnormality Psychiatric: no behavioral changes Endocrine: no fatigue Allergy / Immunological: no GI upset with certain foods Physical Exam Constitutional: WD/WN, vitals as above Eyes: PERRL, conjunctivae normal, anicteric sclerae ENMT: external ear and nose normal, oropharynx normal Neck: trachea midline, no thyromegaly Respiratory: normal respiratory effort, lungs clear to auscultation Cardiovascular: RRR, no murmur, no edema Gastrointestinal (Abdomen): normal bowel sounds, soft, nontender, no hepatosplenomegaly Musculoskeletal: no cyanosis or clubbing, extremities motor strength 5/5 Skin: no rashes, warm and dry Neurologic: PERRL, EOMI, accommodation nl, no face palsy, no dysarthria Psychiatric: A+Ox3, euthymic affect Lymphatic: no cervical or axillary lymphadenopathy Results & Data Results & Data Vital Signs (Past 12 Hours) Vital Signs Temp Pulse Resp BP Pulse Ox O2 Del Method 03/14/25 17:33 64 18 159/72 H 100 Room Air 03/14/25 17:06 71 18 150/75 H 98 Room Air 03/14/25 16:30 66 20 155/87 H 98 Room Air 03/14/25 16:25 64 18 97 Room Air 03/14/25 16:19 154/79 H 03/14/25 16:18 74 22 154/79 H 97 Room Air 03/14/25 15:38 66 03/14/25 15:30 62 18 147/75 H 100 Room Air 03/14/25 15:23 98 Room Air 03/14/25 15:23 36.5 C 62 18 145/78 H 98 Room Air PG Care Time/CCT Total # of Minutes Spent Total Time Spent with Patient: Total time spent is greater than 50% in coordination of care (as documented) at patient's floor/unit and/or counseling patient: Coding Level of Care Code 71731 INT INP/OBS CARE 3/75MIN Diagnoses Near syncope R55 Tachy-nereida syndrome I49.5 Anxiety F41.9 Primary hypertension I10 Hypertension type: primary hypertension (4) Hypertension Hypertension type: primary hypertension Qualified Code(s): I10 - Essential (primary) hypertension
[2025-03-14] MEDS ORDERED: ACETAMINOPHEN 325 MG TAB PO PRN (18:34)
[2025-03-14] MEDS ORDERED: LORazepam 0.5 MG TAB PO PRN (18:34)
[2025-03-14] MEDS ORDERED: METOPROLOL TARTRATE 25 MG TAB PO PRN (18:34)
[2025-03-14] MEDS ORDERED: MELATONIN 3 MG TAB PO PRN (18:38)
--- NOTE | 2025-03-14 19:42 | Emergency Department Note ---
Impression & Plan NSVT (nonsustained ventricular tachycardia), Pre-syncope ED Provider Note NAME: CALEB CONNER AGE: 84 SEX: F : 1940 ARRIVES VIA: Ambulance INFORMANT: Patient, ED PROVIDER(S): Leighann Cameron MD CHIEF COMPLAINT: Presyncope HPI: This is an 84-year-old female presenting for presyncope. Patient states that she was getting lunch today when she began feeling somewhat lightheaded. She thought she might pass out when she laid down. She notes that she felt somewhat similar when she had atrial fibrillation previously. She recently had a pacemaker placed about 2 to 3 weeks ago. She has been well after that. She notes no chest pain or shortness of breath with this episode. She reports no fevers, chills, nausea, vomiting. She is unsure if she felt palpitations. ROS: See above HPI for pertinent positives & negatives. A total of 10 systems reviewed and were otherwise negative. PAST MEDICAL HISTORY: See Below PAST SURGICAL HISTORY: See Below FAMILY HISTORY: See Below SOCIAL HISTORY: See Below HOME MEDICATIONS: See Below ALLERGIES: See Below VITALS: See Below PHYSICAL EXAMINATION: General: resting comfortably in no acute distress Head: Normocephalic and atraumatic Eyes: Normal inspection, extraocular muscles intact Ear, nose, throat: Normal external exam Neck: Normal range of motion Respiratory: lungs clear to auscultation bilaterally Cardiovascular: Regular rate/rhythm, no murmur GI: soft, nontender, no guarding or rebound Extremities: nontender, moves all extremities Neuro: The patient awake and alert, appropriately conversive, no focal deficits, symmetric faces Skin: Warm, dry, and intact MEDICAL DECISION MAKING: This is a 84-year-old female presenting for presyncope. Patient episode of feeling unwell with lightheadedness, almost fainting. No chest pain. Unclear palpitations. Will interrogate pacemaker at this time. Will do basic blood work as well -Bloodwork is reviewed showing no significant leukocytosis, anemia, electrolyte or creatinine abnormality. Negative troponin -ECG independently interpreted by me with atrially paced rhythm, 66, left axis deviation, normal AK, normal QRS, normal QTc, no ST segment elevations consistent with STEMI criteria -Chest Xray independently interpreted by me showing cardiomegaly, no pneumothorax, focal opacity, or pleural effusions. -Overall patient clinically well without current symptoms. - I got a call from the [facility] who states that patient had episode of nonsustained ventricular tachycardia for 4 seconds at a rate of 201. This coincides with around 1 patient was having lunch and the symptoms began. -Due to the episode of NSVT, discussed with cardiology, Dr. Kay, who recommends admission for echo due to recent pacemaker placement. -Discussed with the patient and friend, will be admitted to hospital service -Will admit patient to Dr Liang Differential diagnosis: V. tach, A-fib, PE, ACS, NSTEMI Independent History obtained from: Friend/daughter Diagnostics interpreted by me: ECG: See above Cardiac Monitoring: An order was placed for continuous cardiac monitoring. The monitor shows a rate of 83 with sinus rhythm. Past Med/Surg History Problem List (Updated 03/14/25 @ 19:41 by Leighann Cameron MD) Pre-syncope (Acute) NSVT (nonsustained ventricular tachycardia) (Acute) UTI (urinary tract infection) Bradycardia Tachy-nereida syndrome Near syncope (Acute) Wide-complex tachycardia (Acute) Atrial fibrillation with rapid ventricular response (Acute) Sleep disturbances Elevated cholesterol Atrial fibrillation DX'D 01/17/22 [facility]-PLACED ON ELIQUIS-F/U [facility] Elevated blood sugar History of atrial fibrillation 1 episode 02/05. cardioverted, on eliquis lifetime. per cardio due to resting bradycardia, avoid antiarrhythmic drugs and AV duane blocking drugs Ganglion cyst of left foot History of colon polyps Vitamin D deficiency Hypokalemia Hypertension Lung nodule non smoker, pt declines further CT scan Encounter for pre-operative examination GERD (gastroesophageal reflux disease) Anxiety Situational anxiety (Acute) Insomnia (Chronic) Peripheral edema (Chronic) Pulmonary nodule (Chronic) Medical History Hiatal hernia Troponin level elevated Pericardial effusion Elevated random blood glucose level Abnormal EKG Generalized edema Anemia Surgical History Hx of left breast biopsy History of dilatation and curettage History of bilateral tubal ligation History of varicose vein ligation History of colonoscopy History of esophagogastroduodenoscopy (EGD) History of tooth extraction History of bilateral cataract extraction Family History Mother Diabetes Sister Breast cancer Other No family history of adverse response to anesthesia Denies family history of Ovarian cancer Prostate cancer Myocardial infarction Colorectal cancer Social History Smoking Status: Never smoker Second Hand Exposure: No (hx); Do You Dip or Chew Tobacco: No; Hx Alcohol Use: No Hx Substance Use: No Preferred Language: Tajik Communication Ability: Effective Visual Impairment: No Limitations Hearing Ability: Use of Hearing Aid Hole Digger Required: No Beliefs That Will Affect Care: None marital status: / Current Living Situation: Alone current occupational status: retired How many Children do You have: 4 Feels Safe at Home: Yes Childhood Exposure to Second-Hand Smoke: No Diet: regular caffeine: Yes (coffee or tea) during the past year weight has: remained stable Dental Care, Regularly: Yes Physical Activity Frequency: 5-6 Times per Week Seatbelt Use: always Sunscreen Use: Yes (Sometimes) Assistive Devices: None Allergies Allergies Allergy/AdvReac Type Severity Reaction Status Date / Time No Known Allergies Allergy Verified 03/02/25 11:52 Home Meds Home Medications Medication Instructions Recorded Confirmed diphenhydramine 25 1 tab PO HS 03/15/22 03/14/25 mg-acetaminophen 500 mg tablet (Tylenol PM Extra Strength) melatonin 10 mg capsule 10 mg PO HS PRN Sleep 01/03/23 03/14/25 multivitamin 1 tab PO DAILY 01/03/23 03/14/25 magnesium 200 mg tablet 200 mg PO DAILY 11/13/24 03/14/25 Previous Rx's Medication Instructions Recorded acetaminophen 325 mg tablet 650 mg (2 x 325 mg) PO Q4H PRN 01/18/22 pain #30 tabs escitalopram oxalate 10 mg tablet 10 mg PO QAM #90 tabs 06/26/24 (Lexapro) apixaban 5 mg tablet (Eliquis) 5 mg PO BID #60 tabs 07/31/24 metoprolol tartrate 25 mg tablet 25 mg PO DAILY PRN Afib #10 tabs 11/13/24 lorazepam 0.5 mg tablet 0.5 mg PO BID PRN Anxiety #20 tabs 02/10/25 metoprolol succinate 25 mg 25 mg PO QAM #30 tabs 02/21/25 tablet,extended release 24 hr Results & Data (ED) Vital Signs Vital Signs - 24 hr 03/14/25 15:23 03/14/25 15:23 03/14/25 15:30 Temperature 36.5 C Temperature Source Oral Pulse Rate 62 62 Pulse Rhythm Regular Pulse Strength Normal Respiratory Rate 18 18 Respiratory Effort / Characteristics Non-Labored Spontaneous Respiratory Depth Normal Respiratory Pattern Regular Blood Pressure 145/78 H 147/75 H Blood Pressure Mean 100 99 Blood Pressure Position Semi-fowlers Pulse Oximetry 98 98 100 Oxygen Delivery Method Room Air Room Air Room Air Sepsis Recent Fever Within 48 Hours No Sepsis New/Unexplained Change in Mental Status No Sepsis Action Taken by Nursing No Action Required 03/14/25 15:38 03/14/25 16:18 03/14/25 16:19 Temperature Temperature Source Pulse Rate 66 74 Pulse Rhythm Pulse Strength Respiratory Rate 22 Respiratory Effort / Characteristics Respiratory Depth Respiratory Pattern Blood Pressure 154/79 H 154/79 H Blood Pressure Mean 104 104 Blood Pressure Position Pulse Oximetry 97 Oxygen Delivery Method Room Air Sepsis Recent Fever Within 48 Hours Sepsis New/Unexplained Change in Mental Status Sepsis Action Taken by Nursing 03/14/25 16:25 03/14/25 16:30 03/14/25 17:06 Temperature Temperature Source Pulse Rate 64 66 71 Pulse Rhythm Regular Pulse Strength Respiratory Rate 18 20 18 Respiratory Effort / Characteristics Respiratory Depth Respiratory Pattern Blood Pressure 155/87 H 150/75 H Blood Pressure Mean 109 100 Blood Pressure Position Pulse Oximetry 97 98 98 Oxygen Delivery Method Room Air Room Air Room Air Sepsis Recent Fever Within 48 Hours Sepsis New/Unexplained Change in Mental Status Sepsis Action Taken by Nursing 03/14/25 17:33 03/14/25 18:12 03/14/25 18:52 Temperature Temperature Source Pulse Rate 64 83 Pulse Rhythm Pulse Strength Respiratory Rate 18 20 Respiratory Effort / Characteristics Respiratory Depth Respiratory Pattern Blood Pressure 159/72 H 156/63 H Blood Pressure Mean 101 94 Blood Pressure Position Pulse Oximetry 100 97 98 Oxygen Delivery Method Room Air Room Air Room Air Sepsis Recent Fever Within 48 Hours Sepsis New/Unexplained Change in Mental Status Sepsis Action Taken by Nursing Laboratory Data 03/14/25 15:20 03/14/25 15:20 Lab Results 03/14/25 03/14/25 03/14/25 Range/Units 15:20 16:50 17:30 WBC 6.44 (4.8-10.8) K/ul RBC 4.62 (4.20-5.40) M/uL Hgb 13.6 (12.0-16.0) g/dl Hct 40.7 (37.0-47.0) % MCV 88.1 (80.0-100.0) fL MCH 29.4 (25.0-34.0) pg MCHC 33.4 (32.0-36.0) g/dL RDW Std Deviation 38.6 (36.4-46.3) fL RDW Coeff of Iain 12.0 (11.5-14.5) % Plt Count 257 (130-400) K/uL MPV 9.7 (9.4-12.4) fL Immature Gran % (Auto) 0.2 % Neut % (Auto) 69.7 % Lymph % (Auto) 20.2 % Rogers % (Auto) 6.8 % Eos % (Auto) 1.9 % Baso % (Auto) 1.2 % Neut # (Auto) 4.49 (1.40-6.50) K/uL Lymph # (Auto) 1.30 (1.20-3.40) K/uL Rogers # (Auto) 0.44 (0.11-0.59) K/uL Eos # (Auto) 0.12 (0.00-0.50) K/uL Baso # (Auto) 0.08 (0.00-0.20) K/uL Immature Gran # (Auto) 0.01 (0.01-0.20) K/uL Sodium 134 L (136-145) mmol/L Potassium 3.8 (3.5-5.1) mmol/L Chloride 101 (98-107) mmol/L Carbon Dioxide 26 (21-32) mmol/L Anion Gap 7 (3-11) BUN 17 (6-23) mg/dl Creatinine 0.73 (0.6-1.2) mg/dl Est Cr Clr Drug Dosing 61.3 ml/min eGFR 81.55 BUN/Creatinine Ratio 23.3 H (10-20) Glucose 110 H (70-99(Fasting)) mg/dl Calcium 9.0 (8.6-10.3) mg/dl Magnesium 1.7 (1.7-2.4) mg/dl Total Bilirubin 0.6 (0.2-1.0) mg/dl AST 22 (13-39) U/L ALT 10 (7-52) U/L Alkaline Phosphatase 67 (34-104) U/L Troponin I High Sens 4.5 4.6 (0-14) pg/ml Total Protein 6.9 (6.0-8.3) gm/dl Albumin 3.7 (3.4-5.0) gm/dl Globulin 3.2 (2.5-4.0) gm/dl Albumin/Globulin Ratio 1.2 (0.9-2) TSH 4.352 (0.300-4.500) uIu/ml Urine Color Yellow Urine Appearance Clear (Clear) Urine pH 7.5 (4.5-7.5) Ur Specific [place] 1.010 (1.000-1.030) Urine Protein Negative (Negative) Urine Glucose (UA) Negative (Negative) Urine Ketones Negative (Negative) Urine Blood Trace H (Negative) Urine Nitrite Negative (Negative) Urine Bilirubin Negative (Negative) Urine Urobilinogen Negative (Negative) Ur Leukocyte Esterase Trace H (Negative) Urine WBC (Auto) 0-5 (0-5) /hpf Urine RBC (Auto) 3-5 H (0-2) /hpf U Hyaline Cast (Auto) 0-2 (0-2) /lpf U Epithel Cells (Auto) 0-2 (0-2) /hpf Urine Bacteria (Auto) None Seen (None Seen) Urine Comment Administered Medications Discontinued Medications Sodium Chloride (Nss) 500 mls @ 999 mls/hr IV .Q31M PARVIN Stop: 03/14/25 17:00 Last Infusion: 03/14/25 17:51 Dose: Infused [place]ed By: [facility] [place]: 03/14/25 16:54 Dose: 999 mls/hr Documented By: [facility] [place] Data Radiologist's Impression: Chest X-Ray 03/14/25 16:18 Chest radiograph, one view History: Chest pain Comparison: 02/20/2025 Findings: Single AP view of the chest performed. No focal consolidation or pleural effusion. No pneumothorax. The cardiomediastinal silhouette is within normal limits. Left chest wall dual-lead AICD. normal pulmonary vascularity. No evidence for lymphadenopathy. No visualized bony or soft tissue abnormality. Impression: Normal chest radiograph Electronically signed by Edgardo Beverly 03-14-2025 5:22 PM Discharge Plan Visit Data Chief Complaint: Cardiac Assessment ED Provider: Leighann Cameron Discharge Problem: NSVT (nonsustained ventricular tachycardia), Pre-syncope Patient Disposition: Admitted As Inpatient Condition: Fair Forms Stand Alone Forms: [facility] Prescriptions Prescriptions: No Action escitalopram oxalate [Lexapro] 10 mg tablet 10 mg PO QAM Qty: 90 3RF Eliquis 5 mg tablet 5 mg PO BID Qty: 60 11RF lorazepam 0.5 mg tablet 0.5 mg PO BID PRN (Reason: Anxiety) Qty: 20 0RF multivitamin Tablet 1 tab PO DAILY melatonin 10 mg capsule 10 mg PO HS PRN (Reason: Sleep) magnesium 200 mg tablet 200 mg PO DAILY metoprolol tartrate 25 mg tablet 25 mg PO DAILY PRN (Reason: Afib) Qty: 10 2RF Rx Instructions: take at onset of afib acetaminophen 325 mg Tablet 650 mg PO Q4H PRN (Reason: pain) Qty: 30 0RF diphenhydramine-acetaminophen [Tylenol PM Extra Strength] 25-500 mg Tablet 1 tab PO HS metoprolol succinate 25 mg Tablet Extended Release 24 Hr 25 mg PO QAM Qty: 30 0RF Referrals Referrals: Idania Fofana CRNP [Primary Care Provider] -
[2025-03-14] MEDS: APIXABAN 5 MG TABLET PO SCH (21:37)
[2025-03-14] MEDS: ACETAMINOPHEN 325 MG TAB PO PRN (21:37)
[2025-03-15 06:23] LABS: Hematocrit (blood only) 38.2 % (37.0-47.0); Hemoglobin 13.2 g/dl (12.0-16.0); Mean Corpuscular Hemoglobin 30.6 pg (25.0-34.0); Mean Corpuscular Hgb Conc 34.6 g/dL (32.0-36.0); Mean Corpuscular Volume 88.6 fL (80.0-100.0); Mean Platelet Volume 9.3 fL (9.4-12.4); Platelet Count 235 K/uL (130-400); RDW Standard Deviation 38.9 fL (36.4-46.3); Red Blood Count 4.31 M/uL (4.20-5.40); White Blood Count 5.75 K/ul (4.8-10.8)
[2025-03-15 06:41] LABS: Calcium 8.7 mg/dl (8.6-10.3); Creatinine Clr Calc Pharmacy 72.7 ml/min; Potassium 3.9 mmol/L (3.5-5.1)
[2025-03-15 07:40] VITALS: RESP 18
[2025-03-15] MEDS ORDERED: METOPROLOL SUCC 25MG EXT REL TAB PO SCH (09:00)
[2025-03-15] MEDS: MULTIVITAMIN TAB PO SCH (09:01)
[2025-03-15] MEDS: METOPROLOL SUCC 50MG EXT REL TAB PO SCH (09:02)
[2025-03-15] MEDS: MAGNESIUM OXIDE 400 MG TAB PO SCH (09:02)
[2025-03-15] MEDS: ESCITALOPRAM OXALATE 10 MG TAB PO SCH (09:02)
[2025-03-15 11:28] VITALS: BP 148/81; TEMP 98.1; O2SAT 94
--- NOTE | 2025-03-15 11:56 | Electrocardiogram Report ---
Test Reason : Blood Pressure : */* mmHG Vent. Rate : 66 BPM Atrial Rate : 66 BPM P-R Int : 124 ms QRS Dur : 100 ms QT Int : 432 ms P-R-T Axes : 85 -45 58 degrees QTcB Int : 452 ms Atrial-paced rhythm Left axis deviation Incomplete right bundle branch block Minimal voltage criteria for LVH, may be normal variant Nonspecific ST abnormality Abnormal ECG When compared with ECG of 20-Feb-2025 11:45, No significant change was found Confirmed by Edgardo Crocker ([id number]) on 03/15/2025 11:55:55 AM Referred By: REFERRED SELF Confirmed By: Edgardo Crocker
--- NOTE | 2025-03-15 12:37 | Cardiology Consultation ---
<Statement entered by Marissa Kay MD - 03/15/25 18:07> I have reviewed the advanced practitioner's documentation on the date of service referenced in note, and I agree with, and take responsibility for the plan of care. I spent a total of [30] minutes coordinating, documenting, and providing care for this patient excluding time spent in the performance of separately billed services or time spent by another provider. Date of Consultation March 15, 2025 Assessment & Plan (1) Pre-syncope: (2) NSVT (nonsustained ventricular tachycardia): (3) Cardiac pacemaker in situ: (4) Atrial fibrillation: Plan 84 year old female with past medical history of PAF s/p PPM 02/20/25, hypertension, who presented to ED with lightheadedness and presyncope. Noted to have one brief run 7 beat VT. - lightheadedness improved today on exam - telemetry with paced rhythm, no further arrhythmias - increase metoprolol succinate to 25 mg twice daily - continue to monitor on telemetry - continue Eliquis 5 mg twice daily - follow up with outpatient cardiology Case discussed with attending physician, further recommendations per Dr. Kay. I spent a total of 30 minutes on the date of service in preparation, delivery, and documentation of the care provided to this patient excluding any time spent in the performance of separately billed services. This visit was a split-shared visit with the substantial portion of the decision making performed by the supervising director web/billing provider. Lexie Woody PA-C [facility] History of Present Illness Reason for Consultation: Dizziness/palpitations Requesting Physician: [facility] hospitalist Attending Physician: Taras Liang History of Present Illness 84 year old female with past medical history of PAF s/p PPM 02/20/25, hypertension, who presented to ED with lightheadedness and presyncope. States she was getting up from chair when it started. Finds it difficult to describe symptoms, but felt something was off, felt like afib but different. In ED, EKG with paced rhythm, 66 bpm. Pacemaker interrogated. Overnight at 2220 had 7 beat run of VT. No events on telemetry this morning. On exam today, she states she feels well. Denies chest pain, palpitations, lightheadedness, shortness of breath, edema. She walked to bathroom during exam with no symptoms. Has been compliant with all medications. Denies abnormal bleeding. Denies recent illness. Allergies Allergy/AdvReac Type Severity Reaction Status Date / Time No Known Allergies Allergy Verified 03/02/25 11:52 Home Medications Medication Instructions Recorded Confirmed Type acetaminophen 325 mg tablet 650 mg (2 x 325 mg) PO Q4H PRN 01/18/22 03/14/25 Rx pain #30 tabs diphenhydramine 25 1 tab PO HS 03/15/22 03/14/25 History mg-acetaminophen 500 mg tablet (Tylenol PM Extra Strength) melatonin 10 mg capsule 10 mg PO HS PRN Sleep 01/03/23 03/14/25 History multivitamin 1 tab PO DAILY 01/03/23 03/14/25 History escitalopram oxalate 10 mg tablet 10 mg PO QAM #90 tabs 06/26/24 03/14/25 Rx (Lexapro) apixaban 5 mg tablet (Eliquis) 5 mg PO BID #60 tabs 07/31/24 03/14/25 Rx magnesium 200 mg tablet 200 mg PO DAILY 11/13/24 03/14/25 History metoprolol tartrate 25 mg tablet 25 mg PO DAILY PRN Afib #10 tabs 11/13/24 03/14/25 Rx lorazepam 0.5 mg tablet 0.5 mg PO BID PRN Anxiety #20 tabs 02/10/25 03/14/25 Rx metoprolol succinate 25 mg 25 mg PO QAM #30 tabs 02/21/25 03/14/25 Rx tablet,extended release 24 hr Patient History Medical History Hiatal hernia Troponin level elevated Pericardial effusion Elevated random blood glucose level Abnormal EKG Generalized edema Anemia HX Surgical History Hx of left breast biopsy benign History of dilatation and curettage History of bilateral tubal ligation History of varicose vein ligation bilt legs History of colonoscopy History of esophagogastroduodenoscopy (EGD) History of tooth extraction History of bilateral cataract extraction Family History Mother Diabetes Sister Breast cancer Other No family history of adverse response to anesthesia Denies family history of Ovarian cancer Prostate cancer Myocardial infarction Colorectal cancer Social History Smoking Status: Never smoker Second Hand Exposure: No (hx); Do You Dip or Chew Tobacco: No; Hx Alcohol Use: No Hx Substance Use: No Preferred Language: Malaysian Communication Ability: Effective Visual Impairment: No Limitations Hearing Ability: Use of Hearing Aid Wax Molder Required: No Beliefs That Will Affect Care: None marital status: / Current Living Situation: Alone current occupational status: retired How many Children do You have: 4 Other Information That Helps Us Care for You: No Feels Safe at Home: Yes Safety Concerns: Feels Safe At This Time Childhood Exposure to Second-Hand Smoke: No Diet: regular caffeine: Yes (coffee or tea) during the past year weight has: remained stable Dental Care, Regularly: Yes Physical Activity Frequency: 5-6 Times per Week Seatbelt Use: always Sunscreen Use: Yes (Sometimes) Assistive Devices: Glasses and Hearing Aid - Bilateral Review of Systems Review of Systems: CONSTITUTIONAL: No change in weight, No weakness, No fatigue and No fevers, No sweats or chills. PULMONARY: No cough, sputum, or hemoptysis, No wheezing, No shortness of breath and No recent change in breathing. CARDIOVASCULAR: No chest pain, No dyspnea on exertion, No edema, No palpitations and No syncope. GASTROINTESTINAL: No abdominal pain, No change in bowel habits, No significant heartburn, No nausea, No vomiting, No diarrhea, No constipation, No blood in stools or black tarry stools. No dysphagia. HEMATOLOGIC: No abnormal bleeding and No bruising. NEUROLOGICAL: Normal balance, No headaches and No weakness. Physical Exam Physical Exam: General: No acute distress. A+Ox3. HEENT: Normocephalic. Atraumatic. PERRL. EOMI. Conjunctiva and sclera clear. NECK: No carotid bruits. No JVD. Carotid upstrokes are brisk. Heart: RRR. S1 and S2 noted. No murmur. No rubs or gallops. PMI non displaced. Lungs: Clear to auscultation. No wheezes. No rhonchi. No rales. Abdomen: Normal bowel sounds. Soft. Nontender. No masses or organomegaly. No abdominal bruits. Extremities: No edema. No clubbing or cyanosis. Pulses: radial=2/4, posterior tibial=2/4, dorsalis pedis = 2/4. NEURO: No focal deficits. PSYCH: Appropriate affect and insight. Results & Data Vital Signs (Past 12 Hours) Vital Signs Temp Pulse Pulse Resp BP Pulse Ox O2 Del Method 03/15/25 11:27 36.7 C 76 18 148/81 H 94 Room Air 03/15/25 07:40 36.6 C 62 18 113/63 96 Room Air 03/15/25 07:05 61 03/15/25 03:10 36.9 C 59 L 16 109/50 L 96 Room Air Laboratory Results Cardiac Enzymes 03/14/25 03/14/25 Range/Units 15:20 17:30 AST 22 (13-39) U/L Troponin I High Sens 4.5 4.6 (0-14) pg/ml CBC 03/14/25 03/15/25 Range/Units 15:20 05:38 WBC 6.44 5.75 (4.8-10.8) K/ul RBC 4.62 4.31 (4.20-5.40) M/uL Hgb 13.6 13.2 (12.0-16.0) g/dl Hct 40.7 38.2 (37.0-47.0) % Plt Count 257 235 (130-400) K/uL Neut # (Auto) 4.49 (1.40-6.50) K/uL Lymph # (Auto) 1.30 (1.20-3.40) K/uL [place] # (Auto) 0.44 (0.11-0.59) K/uL Eos # (Auto) 0.12 (0.00-0.50) K/uL Baso # (Auto) 0.08 (0.00-0.20) K/uL Comprehensive Metabolic Panel 03/14/25 03/15/25 Range/Units 15:20 05:38 Sodium 134 L 139 (136-145) mmol/L Potassium 3.8 3.9 (3.5-5.1) mmol/L Chloride 101 106 (98-107) mmol/L Carbon Dioxide 26 29 (21-32) mmol/L BUN 17 14 (6-23) mg/dl Creatinine 0.73 0.61 (0.6-1.2) mg/dl Glucose 110 H 100 H (70-99(Fasting)) mg/dl Calcium 9.0 8.7 (8.6-10.3) mg/dl AST 22 (13-39) U/L ALT 10 (7-52) U/L Alkaline Phosphatase 67 (34-104) U/L Total Protein 6.9 (6.0-8.3) gm/dl Albumin 3.7 (3.4-5.0) gm/dl Intake and Output 03/14/25 03/15/25 03/15/25 22:59 06:59 14:59 Intake Total 1000 / 1000 Balance 1000 / 1000 Intake: IV 1000 / 1000 Sodium Chloride 0.9% 500 ml @ 500 / 500 999 mls/hr IV .Q31M [facility] Rx#: [id number] Left Antecubital 500 / 500 Other: # Unmeasured Voids 1 Weight 75.75 kg 75.75 kg Weight Measurement Method Built in [facility] (4) Atrial fibrillation Atrial fibrillation type: unspecified chronic Qualified Code(s): I48.20 - Chronic atrial fibrillation, unspecified
--- NOTE | 2025-03-15 14:32 | Discharge Summary ---
Discharge Summary Date of Service March 15, 2025 Principal Dx & Hospital Course #1 = Principal Diagnosis (1) Near syncope: Admitted to PCU consulted cardiology. recommends increasing metoprolol to 25 mg PO BID. Patient can be discharged. (2) Tachy-nereida syndrome: continue beta rosie as noted above (3) Anxiety: resume home meds (4) Hypertension: resume home meds Admission HPI Per Admitting Provider 84 yo female here with presyncope, dizziness. Patient presents with above symptoms. Patient had a pacemaker 3 weeks ago. Has been feeling well since but today at around luch time, she felt like she was going to pass out. SHe complained of some palpitations. Her pacemaker was interrogated and showed a 4 second run of V tach. Discharge Exam Constitutional WD/WN, vitals as above Eyes PERRL, conjunctivae normal, anicteric sclerae ENMT external ear and nose normal, oropharynx normal Neck trachea midline, no thyromegaly Respiratory normal respiratory effort, lungs clear to auscultation Cardiovascular RRR, no murmur, no edema Gastrointestinal (Abdomen) normal bowel sounds, soft, nontender, no hepatosplenomegaly Musculoskeletal no cyanosis or clubbing, extremities motor strength 5/5 Skin no rashes, warm and dry Neurologic PERRL, EOMI, accommodation nl, no face palsy, no dysarthria Psychiatric A+Ox3, euthymic affect Lymphatic no cervical or axillary lymphadenopathy Discharge Plan Discharge Items Patient Disposition: Home - Self-Care Reason For Visit: SYNCOPE Discharge Diagnosis: syncope Condition on Discharge: Fair Activity: Resume your previous activity Non-emergency contact: Primary Care Provider Call non-emergency contact if: you have any medication questions Follow-up/Referrals: Idania Fofana CRNP [Primary Care Provider] - Diet: Regular Addtl Attending Provider Instructions: - increase metoprolol succinate to 25 mg twice daily - follow up with outpatient cardiology Recommend PCP followup in 1-2 weeks. Pending Studies at Discharge: No Stand-Alone Forms: My CallAround, Smoking Cessation Medications and DC Order Prescriptions: Continued escitalopram oxalate [Lexapro] 10 mg tablet 10 mg PO QAM Qty: 90 3RF Eliquis 5 mg tablet 5 mg PO BID Qty: 60 11RF lorazepam 0.5 mg tablet 0.5 mg PO BID PRN (Reason: Anxiety) Qty: 20 0RF multivitamin Tablet 1 tab PO DAILY melatonin 10 mg capsule 10 mg PO HS PRN (Reason: Sleep) magnesium 200 mg tablet 200 mg PO DAILY metoprolol tartrate 25 mg tablet 25 mg PO DAILY PRN (Reason: Afib) Qty: 10 2RF Rx Instructions: take at onset of afib acetaminophen 325 mg Tablet 650 mg PO Q4H PRN (Reason: pain) Qty: 30 0RF diphenhydramine-acetaminophen [Tylenol PM Extra Strength] 25-500 mg Tablet 1 tab PO HS Changed metoprolol succinate 25 mg Tablet Extended Release 24 Hr 25 mg PO BID Qty: 60 0RF Discharge Orders: Discharge Order (Routine); Ordered 03/15/25 Ordered By: Taras Liang Admission Data Admit Date/Time: 03/14/25 18:28 Attending Provider: Taras Liang Admit Provider: Taras Liang Primary Care Provider: Idania Fofana Other Providers: Taras Liang; Karissa Owen; Deni Smith; Frederick Calderon; Paul Brody; Rodri Nixon; Giacomo Sagastume; Carmen Callahan; Makenna Gutierrez; Neeru Robles; Mundo Kay Ashley M.; Checo Cohn; Sina Díaz; Marissa Bahena; Lexie Woody; Niyah Edmondson; Boone Oscar; Taras Leyva; Deisy Proctor; Daisha Gonsalves; Edgardo Patel Other Interventions: Discharge Summary Assessment (RN) Last Done: 03/15/25 15:07 Hospital Stay Data Consultations 03/14/25 18:12 ED Decision to Admit Stat 03/14/25 18:27 Consult Cardiology Routine Pending Results Patient Have Any Pending Studies at Discharge: No Discharge Instructions Given to Patient (Per Discharging Provider) - increase metoprolol succinate to 25 mg twice daily - follow up with outpatient cardiology Recommend PCP followup in 1-2 weeks. Total Time Total Time Spent Total Time Spent (In Minutes): 32 Coding Level of Care Code 42420 INP/OBS DISCH >30 MIN Diagnoses Near syncope R55 Tachy-nereida syndrome I49.5 Anxiety F41.9 Primary hypertension I10 Hypertension type: primary hypertension
[2025-03-15 15:07] VITALS: PULSE 60
[2025-03-15] MEDS ORDERED: ACETAMINOPHEN 500 MG TAB PO SCH (21:00)
--- NOTE | 2025-03-17 13:18 | Coding Query ---
CODING QUERY To promote full compliance with coding requirements relating to patient care, provider participation is requested in all cases of population health manager uncertainty. Please assist us with the question(s) below: Coding Question(s): Please specify below, in your clinical opinion, the most likely cause of Syncope during this admission: ( x ) Syncope most likely due to Ventricular Tachycardia ( ) Syncope most likely due to Other: Please Specify ( ) Syncope with unknown most likely cause Physician's Response(s): Thank you Ginna Valdovinos Principal Diagnosis: "that condition established after study, to be chiefly responsible for occasioning the admission of the patient to the hospital for care." Co-Existing Principal Diagnosis: "when two or more diagnoses equally meet the criteria for principal diagnosis as determined by the circumstances of admission, diagnostic work up, and/or therapy provided, and the Alphabetic Index, Tabular List, or another coding guideline does not provide sequencing direction, any one of the diagnoses may be sequenced first." "When the physician has documented what appears to be a current diagnosis in the body of the record, but has not included the diagnosis in the final diagnostic statement, the physician should be asked whether the diagnosis should be added." (Source Coding Clinic 2 QTR90. p3-4) [facility]
== END 2025-03-15 15:28 | disposition home or self-care (01) | DRG 310 ==
LOC: SUATTDRO → ED 15:11 → 2S 18:28